=== PATIENT | female | born 1940 | race Caucasian/White ===

== ENCOUNTER 2016-11-27 10:00 | Outpatient (RCR) ==
[2015-07-26 15:09] VITALS: BMI 34.0
== END 2016-11-28 ==
LOC: NEWBEG 10:00
PROVIDERS: ATTEND Psychiatry & Neurology Psychiatry
DX: F32.9 Major depressive disorder, single episode, unspecified (principal)
CPT/HCPCS: 90853; 99213

== ENCOUNTER 2016-12-21 13:08 | Outpatient (CLI) ==
[2015-07-26 15:09] VITALS: BMI 34.0
[2016-12-21 13:46] LABS: BASOPHILS % (AUTO) 0.5 % (0.0-3.0); EOSINOPHILS # (AUTO) 0.2 K/ul (0.0-0.7); EOSINOPHILS % (AUTO) 2.3 % (0.0-7.0); HEMATOCRIT 38.7 % (37.0-47.0); HEMOGLOBIN 12.8 g/dl (12.0-16.0); IMMATURE GRANULOCYTE % (AUTO) 0.2 % (0.0-5.0); LYMPHOCYTES # (AUTO) 1.5 K/uL (0.60-3.4); MEAN CORPUSCULAR HEMOGLOBIN 30.7 pg (27.0-31.0); MEAN CORPUSCULAR HGB CONC 33.1 (31.8-35.4); MEAN CORPUSCULAR VOLUME 92.8 fl (81.0-99.0); MONOCYTES # (AUTO) 0.7 K/uL (0.4-2.0); MONOCYTES % (AUTO) 9.8 (0-10); NEUTROPHILS # (AUTO) 4.3 K/ul (2.0-6.9); NEUTROPHILS % (AUTO) 65.2; PLATELET COUNT 248 10^3/uL (140-440); RED BLOOD COUNT 4.17 10^6/ul (4.20-5.40); WHITE BLOOD COUNT 6.64 K/ul (4.6-10.2)
[2016-12-21 14:21] LABS: ALBUMIN 3.3 g/dL (3.4-5.0); ALBUMIN/GLOBULIN RATIO 0.87; ANION GAP 13.9; BILIRUBIN,TOTAL 0.61 mg/dL (0.00-1.20); BUN/CREATININE RATIO 14.11; CALCIUM 9.9 mg/dL (8.2-10.2); CREATININE 0.85 mg/dL (0.60-1.30); POTASSIUM 3.9 mmol/L (3.5-5.10); TOTAL PROTEIN 7.1 g/dL (5.8-8.1)
[2016-12-22 13:33] LABS: CARCINOEMBRYONIC ANTIGEN 1.5 ng/mL (0.0-4.7)
[2016-12-23 09:45] LABS: CANCER ANTIGEN 27.29 35.4 U/mL (0.0-38.6)
== END 2016-12-21 13:09 | disposition home or self-care (01) ==
LOC: LAB 13:08
PROVIDERS: ATTEND Internal Medicine Hematology & Oncology
DX: C50.919 Malignant neoplasm of unspecified site of unspecified female breast (principal)
CPT/HCPCS: 36415; 80053; 82378; 85025; 86300

== ENCOUNTER 2016-12-25 10:00 | Outpatient (RCR) ==
[2015-07-26 15:09] VITALS: BMI 34.0
== END 2016-12-26 ==
LOC: NEWBEG 10:00
PROVIDERS: ATTEND Psychiatry & Neurology Psychiatry
DX: F32.9 Major depressive disorder, single episode, unspecified (principal)
CPT/HCPCS: 90853; 99213

== ENCOUNTER 2017-01-05 13:32 | Outpatient (CLI) | payer OTHER ==
[2015-07-26 15:09] VITALS: BMI 34.0
== END 2017-01-05 13:33 | disposition home or self-care (01) ==
LOC: LAB 13:32
PROVIDERS: ATTEND Nurse Practitioner Family
DX: K76.9 Liver disease, unspecified (principal); F32.9 Major depressive disorder, single episode, unspecified
CPT/HCPCS: 36415; 83516; 90853

== ENCOUNTER → 2017-01-26 | Outpatient (RCR) ==
[2015-07-26 15:09] VITALS: BMI 34.0
== END ==
LOC: NEWBEG 12-27 10:26
PROVIDERS: ATTEND Psychiatry & Neurology Psychiatry
DX: F32.9 Major depressive disorder, single episode, unspecified (principal)
CPT/HCPCS: 90853; 99213

== ENCOUNTER 2017-02-04 18:57 | Emergency (ER) ==
[2017-02-04 19:00] VITALS: BP 148/95; TEMP 98.5; BMI 29.7
[2017-02-04] MEDS ORDERED: TORADOL IM STA (19:09)
[2017-02-04] MEDS ORDERED: DILAUDID 1 MG/ML SYRINGE IM STA (19:09)
[2017-02-04] MEDS ORDERED: NORFLEX IM STA (19:09)
[2017-02-04 19:27] LABS: BASOPHILS % (AUTO) 0.4 % (0.0-3.0); EOSINOPHILS # (AUTO) 0.2 K/ul (0.0-0.7); EOSINOPHILS % (AUTO) 1.4 % (0.0-7.0); HEMATOCRIT 40.7 % (37.0-47.0); HEMOGLOBIN 13.5 g/dl (12.0-16.0); IMMATURE GRANULOCYTE % (AUTO) 0.3 % (0.0-5.0); LYMPHOCYTES # (AUTO) 1.3 K/uL (0.60-3.4); LYMPHOCYTES % (AUTO) 12.4 (10.0-50.0); MEAN CORPUSCULAR HEMOGLOBIN 30.5 pg (27.0-31.0); MEAN CORPUSCULAR HGB CONC 33.2 (31.8-35.4); MEAN CORPUSCULAR VOLUME 91.9 fl (81.0-99.0); MONOCYTES # (AUTO) 0.8 K/uL (0.4-2.0); MONOCYTES % (AUTO) 7.4 (0-10); NEUTROPHILS # (AUTO) 8.4 K/ul (2.0-6.9); NEUTROPHILS % (AUTO) 78.1; PLATELET COUNT 285 10^3/uL (140-440); RED BLOOD COUNT 4.43 10^6/ul (4.20-5.40); WHITE BLOOD COUNT 10.74 K/ul (4.6-10.2)
--- NOTE | 2017-02-04 19:44 | CT ---
Exam: CT of the chest without contrast History: Back pain Technique: [address] of the chest without intravascular contrast FINDINGS: Lung windows show no infiltrative opacities, suspicious nodules or masses. The atrial ch ambers are prominent. Atherosclerotic calcification of the aorta without aneurysm. No pathologic l ymph node enlargement or abundance of mediastinum. No acute findings of the chest wall soft tissues or bony thorax. Low grade multilevel anterior endplate spondylosis of the thoracic spine. No acut e findings of the upper abdomen. Impression: 1. No acute findings of the chest
--- NOTE | 2017-02-04 19:50 | CT ---
EXAM: CT scan thoracic spine HISTORY: Back pain COMPARISON: None. FINDINGS: Contiguous axial images were obtained through the thoracic spine utilizing 3-mm collimati on. Sagittal and coronal reconstructions were imaged and reviewed.. There is moderate generalized o steopenia. Degenerative disc disease is noted at T2-T3 and at multiple levels within the mid thora cic spine with associated ventral spondylitic changes throughout which are most prominent inferiorly . There is no acute fracture or bony destruction. No central canal or foraminal stenosis. IMPRESSION: Discogenic disease ventral spondylitic changes. No acute findings.
[2017-02-04 19:55] LABS: ALANINE AMINOTRANSFERASE 13 U/L (12-78); ALBUMIN 3.5 g/dL (3.4-5.0); ALBUMIN/GLOBULIN RATIO 1.03; ALKALINE PHOSPHATASE 142 U/L (53-141); ANION GAP 11.7; ASPARTATE AMINO TRANSFERASE 15 U/L (15-37); BILIRUBIN,TOTAL 0.68 mg/dL (0.00-1.20); BLOOD UREA NITROGEN 10 mg/dL (7-18); BUN/CREATININE RATIO 10.52; CARBON DIOXIDE 31 mmol/L (23-31); CHLORIDE 97 mmol/L (98-107); CREATINE KINASE 29 U/L; CREATININE 0.95 mg/dL (0.60-1.30); GLUCOSE 114 mg/dL (82-115); POTASSIUM 3.7 mmol/L (3.5-5.10); SODIUM 136 mmol/L (136-145); TOTAL PROTEIN 6.9 g/dL (5.8-8.1)
[2017-02-04] MEDS ORDERED: ELIQUIS PO STA (19:59)
--- NOTE | 2017-02-04 20:22 | ED.PDOC ---
General ED Provider: Dr. JOSEPH SURESH-ER Chief Complaint: Back Pain Stated Complaint: my back is flaring up Time Seen by Physician: 19:00 Mode of Arrival: Walk-In Information Source: Patient Exam Limitations: No limitations Primary Care Provider: JOSEPH SURESH Nursing and Triage Documentation Reviewed and Agree: Yes Musculoskeletal Complaint Exam - Back Pain Complaint/Exam Mechanism of Injury: Reports: No known trauma Onset/Duration: several weeks Symptoms Are: Still present Timing: Constant Initial Severity: Mild Current Severity: Moderate Location: Reports: Discrete (upper back pain) Character: Reports: Dull, Aching, Throbbing, Spasmodic Aggravating: Reports: Movements, Lifting, Bending Alleviating: Reports: None Associated Signs and Symptoms: Denies: Swelling, Redness, Bruising, Fever, Weakness, Numbness, Tingling, Abdominal pain, Flank pain, Bladder incontinence, Bowel incontinence, Weight loss, Pain with weight bearing Related History: Reports: Similar episode TAD Risk Factors: Reports: Hypertension AAA Risk Factors: Reports: None Cauda Equina Risk Factors: Reports: None Epidural Abcess Risk Factors: Reports: None Focal Tenderness: Yes Paraspinal Muscle Tenderness: Yes Paraspinal Muscle Spasm: No Scoliosis: No Lordosis: No Kyphosis: No SLR Test: Right Negative, Left Negative Hip Motion Testing Pain: Right Negative, Left Negative Focal Weakness: Present: None Focal Sensory Loss: Present: None Gait: Present: Normal Differential Diagnoses: Herniated Disk, Strain, Sprain Review of Systems - Review Of Systems Constitutional: Reports: No symptoms Eyes: Reports: No symptoms Ears, Nose, Mouth, Throat: Reports: No symptoms Respiratory: Reports: No symptoms Cardiac: Reports: No symptoms GI: Reports: No symptoms : Reports: No symptoms Musculoskeletal: Reports: Back pain Skin: Reports: No symptoms Neurological: Reports: No symptoms Endocrine: Reports: No symptoms Hematologic/Lymphatic: Reports: No symptoms All Other Systems: Reviewed and Negative Past Medical History - Past Medical History Endocrine: Reports: None Cardiovascular: Reports: Hypertension, Other (tachycardia) Respiratory: Reports: COPD Hematological: Reports: None Gastrointestinal: Reports: GERD, Liver Genitourinary: Reports: None Neuro/Psych: Reports: None Musculoskeletal: Reports: Other Cancer: Reports: Breast Last Menstrual Period: n/a - Surgical History General Surgical History: Reports: Cholecystectomy - Family History Family History: Reports: Unknown - Social History Smoking Status: Never smoker Hx Substance Use: No Alcohol Screening: None Lives: With family Physical Exam - Physical Exam Appearance: Well-appearing, No pain distress, Well-nourished Pain Distress: Moderate Eyes: MEGAN, EOMI, Conjunctiva clear ENT: Ears normal, Nose normal, Oropharynx normal Neck: Supple Respiratory: Airway patent, Breath sounds clear, Breath sounds equal, Respirations nonlabored Cardiovascular: RRR, Pulses normal, No rub, No murmur GI/: Soft, Nontender, No masses, Bowel sounds normal, No Organomegaly Musculoskeletal: Limited ROM Skin: Warm, Dry, Normal color Neurological: Sensation intact, Motor intact, Reflexes intact, Cranial nerves intact, Alert, Oriented Psychiatric: Affect appropriate, Mood appropriate Interpretation - Radiology Interpretation Radiology Interpretation By: Radiologist Radiology Results: Positive Exam Interpreted: CT Scan - EKG Interpretation Time of EKG #1: 20:22 Rate: Normal Rhythm: Other Ectopy: None [place]: NL ST Segment: Normal Interpretation: afib Re-Evaluation - Re-Evaluation Time of Re-Evaluation: 20:23 Status: Improved Vital Signs Stable: Yes Pain Level: 1 Appearance: NAD Lungs: Clear Skin: Warm and Dry Neuro: Alert and Oriented X3 CV: RRR Critical Care Note - Critical Care Note Total Time (mins): 0 Course - Course Hematology/Chemistry: 02/04/17 19:20 02/04/17 19:20 Orders, Labs, Meds: Lab Review 02/04/17 19:20 WBC 10.74 H RBC 4.43 Hgb 13.5 Hct 40.7 MCV 91.9 MCH 30.5 MCHC 33.2 RDW Coeff of Penny 13.9 Plt Count 285 Immature Gran % (Auto) 0.3 Neut % (Auto) 78.1 Lymph % (Auto) 12.4 Coos % (Auto) 7.4 Eos % (Auto) 1.4 Baso % (Auto) 0.4 Immature Gran # (Auto) 0.0 Neut # 8.4 H Lymph # 1.3 Coos # 0.8 Eos # 0.2 Baso # 0.0 D-Dimer (Manual) 722.74 Sodium 136 Potassium 3.7 Chloride 97 L Carbon Dioxide 31 Anion Gap 11.7 BUN 10 Creatinine 0.95 Estimated GFR (MDRD) 57.00 BUN/Creatinine Ratio 10.52 Glucose 114 Calcium 10.0 Total Bilirubin 0.68 AST 15 ALT 13 Alkaline Phosphatase 142 H Total Creatine Kinase 29 Troponin I < 0.0100 Total Protein 6.9 Albumin 3.5 Globulin 3.4 Albumin/Globulin Ratio 1.03 Orders Category Date Time Status EKG-(ED ONLY) Stat CARDIO 02/04/17 19:08 Completed ED RUBY ON RAILS WEB DEVELOPER APPLIED .ONCE EMERGENCY 02/04/17 19:48 Active CBC W/ AUTO DIFF Stat LAB 02/04/17 19:20 Completed COMPREHENSIVE METABOLIC PANEL Stat LAB 02/04/17 19:20 Completed CREATINE KINASE Stat LAB 02/04/17 19:20 Completed D-DIMER Stat LAB 02/04/17 19:20 Completed TROPONIN I Stat LAB 02/04/17 19:20 Completed Apixaban [Eliquis] MEDS 02/04/17 19:59 Discontinued 5 mg PO ONCE STA Hydromorphone HCl [Dilaudid 1 mg/ml Syringe] MEDS 02/04/17 19:09 Discontinued 1 mg IM ONCE STA Ketorolac Tromethamine [Toradol] MEDS 02/04/17 19:09 Discontinued 60 mg IM ONCE STA Orphenadrine Citrate [Norflex] MEDS 02/04/17 19:09 Discontinued 60 mg IM ONCE STA CT CHEST W/O CONTRAST Stat RADS 02/04/17 19:[address] THORACIC SPINE W/O CONTRAST Stat RADS 02/04/17 19:08 Completed Medications Discontinued Medications Generic Name Dose Route Start Last Admin Trade Name Freq PRN Reason Stop Dose Admin Apixaban 5 mg 02/04/17 19:59 Eliquis PO 02/04/17 20:00 ONCE STA Hydromorphone HCl 1 mg 02/04/17 19:09 02/04/17 19:39 Dilaudid 1 Mg/Ml Syringe IM 02/04/17 19:10 1 mg ONCE STA Administration Ketorolac Tromethamine 60 mg 02/04/17 19:09 02/04/17 19:44 Toradol IM 02/04/17 19:10 60 mg ONCE STA Administration Orphenadrine Citrate 60 mg 02/04/17 19:09 02/04/17 19:44 Norflex IM 02/04/17 19:10 60 mg ONCE STA Administration Vital Signs: Temp Pulse Resp BP Pulse Ox 02/04/17 18:58 98.5 F 45 L 20 148/95 H 93 L Departure - Departure Time of Disposition: 20:26 Disposition: HOME SELF-CARE Discharge Problem: Backache Atrial fibrillation Qualifiers: Atrial fibrillation type: unspecified Qualifier Code: (I48.91) Unspecified atrial fibrillation Instructions: Atrial Fibrillation (ED) Condition: Good Pt referred to PMD for follow-up: Yes Additional Instructions: continue pain meds--eliquis 5mg bid #60---call my office tomorrow to arrange cardiology f/u--see me this week for follow up on back pain(tomorrow if possible ) Allergies/Adverse Reactions: Allergies quinine Adverse Reaction (Verified 02/04/17 19:01) Home Medications: Ambulatory Orders Lisinopril [Lisinopril] 10 mg PO DAILY 07/26/15 Pantoprazole Sodium [Pantoprazole Sodium] 40 mg PO BID 07/26/15 Ursodiol [Ursodiol] 300 mg PO BEDTIME 07/26/15 Disposition Discussed With: Patient, Family
== END 2017-02-04 20:45 | disposition home or self-care (01) ==
LOC: ED 18:57
DX: M54.6 Pain in thoracic spine (principal); I48.91 Unspecified atrial fibrillation; I10 Essential (primary) hypertension; Z79.899 Other long term (current) drug therapy
CPT/HCPCS: 36415; 80053; 82550; 84484; 85025; 85379; 93005; 93010; 96372; 99283

== ENCOUNTER 2017-02-09 10:00 | Outpatient (RCR) ==
[2015-07-26 15:09] VITALS: BMI 34.0
== END 2017-02-25 ==
LOC: NEWBEG 10:00
PROVIDERS: ATTEND Psychiatry & Neurology Psychiatry
DX: F32.9 Major depressive disorder, single episode, unspecified (principal)
CPT/HCPCS: 90853; 99213

== ENCOUNTER 2017-03-09 10:00 | Outpatient (RCR) | END 2017-03-28 | LOC: NEWBEG 10:00 | PROVIDERS: ATTEND Psychiatry & Neurology Psychiatry | DX: F32.9 Major depressive disorder, single episode, unspecified (principal) | CPT/HCPCS: 90853; 99213 ==

== ENCOUNTER 2017-03-14 15:47 | Outpatient (CLI) ==
[2017-03-14 16:25] LABS: BASOPHILS % (AUTO) 0.2 % (0.0-3.0); EOSINOPHILS % (AUTO) 0.2 % (0.0-7.0); HEMATOCRIT 40.3 % (37.0-47.0); HEMOGLOBIN 13.7 g/dl (12.0-16.0); IMMATURE GRANULOCYTE % (AUTO) 0.5 % (0.0-5.0); LYMPHOCYTES % (AUTO) 7.8 (10.0-50.0); MEAN CORPUSCULAR HEMOGLOBIN 31.8 pg (27.0-31.0); MEAN CORPUSCULAR VOLUME 93.5 fl (81.0-99.0); MONOCYTES # (AUTO) 0.6 K/uL (0.4-2.0); NEUTROPHILS # (AUTO) 10.8 K/ul (2.0-6.9); NEUTROPHILS % (AUTO) 86.3; PLATELET COUNT 329 10^3/uL (140-440); RED BLOOD COUNT 4.31 10^6/ul (4.20-5.40); WHITE BLOOD COUNT 12.48 K/ul (4.6-10.2)
[2017-03-14 16:43] LABS: CALCIUM 9.7 mg/dL (8.2-10.2)
--- NOTE | 2017-03-14 16:50 | DI ---
Exam: Two x-rays of the chest. Comparison: CT performed 02/04/2017. Reason for exam: The atrial fibrillation. FINDINGS: No pneumothorax or pleural effusion. There is linear atelectasis in the right lung base. The cardiac silhouette is unchanged. The imaged osseous structures are unremarkable without acute fracture. Degenerative disease is seen in the thoracic spine with anterior osteophyte formation. Impression: 1. No acute cardiopulmonary process with linear atelectasis in the right lung base. 2. Degenerative disease in the thoracic spine
[2017-03-15 07:43] LABS: CANCER ANTIGEN 27.29 35.2 U/mL (0.0-38.6); CARCINOEMBRYONIC ANTIGEN 1.8 ng/mL (0.0-4.7)
[2017-03-15 10:58] LABS: ALBUMIN 3.5 g/dL (3.4-5.0); ALBUMIN/GLOBULIN RATIO 0.95; BILIRUBIN,TOTAL 0.3 mg/dL (0.00-1.20); TOTAL PROTEIN 7.2 g/dL (5.8-8.1)
== END 2017-03-14 15:48 | disposition home or self-care (01) ==
LOC: LAB 15:47
PROVIDERS: ATTEND Internal Medicine Cardiovascular Disease
DX: I48.0 Paroxysmal atrial fibrillation (principal); Z01.818 Encounter for other preprocedural examination; Z85.3 Personal history of malignant neoplasm of breast
CPT/HCPCS: 36415; 80048; 80053; 82378; 85025; 86300

== ENCOUNTER 2017-05-03 14:56 | Outpatient (CLI) ==
--- NOTE | 2017-05-03 15:33 | DI ---
Exam: Two x-rays of the chest. Comparison: 03/14/2017. Reason for exam: Bronchitis with cough. FINDINGS: There is blunting of both costophrenic angles. No pneumothorax. The cardiac silhouette is mildly prominent but unchanged from previous imaging. D egenerative disease is seen in the thoracic spine. Impression: 1. Blunting of both costophrenic angles consistent with atelectasis or pneumonia with or without sm all pleural effusions. 2. Similar appearing cardiomegaly.
== END 2017-05-03 14:57 | disposition home or self-care (01) ==
LOC: RAD 14:56
PROVIDERS: ATTEND Family Medicine
DX: J40 Bronchitis, not specified as acute or chronic (principal)

== ENCOUNTER 2017-05-16 16:41 | Outpatient (CLI) ==
--- NOTE | 2017-05-17 08:02 | DI ---
EXAM: PA and lateral views of the chest HISTORY: Pleural effusion COMPARISON: Chest x-ray 05/03/2017 FINDINGS: The cardiomediastinal silhouette is unchanged with calcified right hilar lymph nodes. Th ere is no pneumothorax or pleural effusion. There is no consolidation, nodule or mass. The osseous structures demonstrate multilevel degenerative disease of the spine. Surgical clips are noted in r ight upper quadrant. IMPRESSION: No acute cardiopulmonary process
== END 2017-05-16 16:42 | disposition home or self-care (01) ==
LOC: RAD 16:41
PROVIDERS: ATTEND Family Medicine
DX: J90 Pleural effusion, not elsewhere classified (principal)

== ENCOUNTER 2017-05-24 16:58 | Emergency (ER) ==
[2017-05-24 17:06] VITALS: BP 159/104; TEMP 100.2; BMI 29.2
--- NOTE | 2017-05-24 17:55 | CT ---
Exam: Head CT. Date: 05/24/2017. Comparison: None. HISTORY: Fell. TECHNIQUE: Helical scan of the brain was performed. FINDINGS: There is injury to the soft tissues over the right frontal calvarium. The calvarium is i ntact. The paranasal sinuses and mastoid air cells are clear. The brainstem and cerebellum are within normal limits. No abnormal intra or extra-axial fluid, mass or mass effect is present. There is no midline shift or hydrocephalus. No large vessel infarct or hemorrhages identified. The beverly-white interface is maintained. Impression: There is injury to the soft tissues over the right frontal calvarium, but without under lying calvarial fracture or acute intracranial abnormality.
--- NOTE | 2017-05-24 18:00 | CT ---
Exam: CT scan of the cervical spine. Date: 05/24/2017. Comparison: None. HISTORY: Fell and hit head. TECHNIQUE: Helical scan through the cervical spine was performed. FINDINGS: No prevertebral soft tissue swelling is seen. There is a normal aligned to the cervical spine. There is loss of disc space height with degenerative spurring from C3-C7. The vertebral bod y heights are maintained at all levels. Segmental analysis: C1-2: There is a large exuberant osteophyte projecting off the right anterior arch of C1 which has a pseudoarthrosis with an additional ossicle that is anterior to the osteophyte; the ossicle measure s 1.0 x 2.1 cm. C2-3: No abnormalities are seen. C3-4: There is mild diffuse disc/osteophyte complex with minimal impression upon the thecal sac. T here is severe right and moderate left neural foraminal narrowing from uncovertebral osteophytosis. C4-5: There is a central midline disc/osteophyte complex which narrows the canal diameter less than 1 cm and has an impression upon the thecal sac and cord. There is severe bilateral neural foramina l narrowing from uncovertebral osteophytosis. C5-6: There is mild diffuse disc/osteophyte complex with mild impression upon the thecal sac. Ther e is minimal left neural foraminal narrowing from uncovertebral osteophytosis and facet hypertrophy. C6-7: There is mild diffuse disc/osteophyte complex causing mild impression upon the thecal sac. T here is moderate right and mild left neural foraminal narrowing from uncovertebral osteophytosis. C7-T1: No abnormalities are seen. Impression: No acute osseous abnormality in the cervical spine, with degenerative changes at the le vels as described above.
--- NOTE | 2017-05-24 18:07 | ED.PDOC ---
General ED Provider: Dr. JOSEPH SURESH-ER Chief Complaint: Fall Stated Complaint: i fell and hit my head--no loc or vomiting Time Seen by Physician: 17:00 Mode of Arrival: Ambulance Information Source: Patient, Family Exam Limitations: No limitations Primary Care Provider: JOSEPH SURESH Nursing and Triage Documentation Reviewed and Agree: Yes Trauma/Injury Complaint Exam - Head Injury Complaint/Exam Location of Pain: Reports: Right, Scalp Mechanism of Injury: Reports: Trauma Onset/Duration: 30 min ago Symptoms Are: Still present Initial Severity: Mild Current Severity: Mild Character: Reports: Dull, Throbbing, Pressure Aggravating: Reports: None Alleviating: Reports: None Associated Signs and Symptoms: Denies: Confusion, Memory loss, Seizure, Epistaxis, Dental malocclusion, Neck pain, Nausea, Vomiting Loss of Consciousness: None SDH Risk Factors: Present: None Cervical Spine Injury Risk Factors: Present: None C-Collar in Place: yes Immobilization Removed Post Exam: Yes Head Injury Findings: Present: Normal findings Glascow Coma Scale (see protocol): 15 Focal Weakness: Present: None Focal Sensory Loss: Present: None Gait: Normal Gag Reflex Present: Yes Finger to Nose: Normal Rhomberg Test Positive: No Babinski Sign: Negative Right, Negative Left Heel to Toe Normal: Yes Differential Diagnoses: Cervical Fracture, Intracranial Bleed, Sprain, Strain, Trauma Review of Systems - Review Of Systems Constitutional: Reports: No symptoms Eyes: Reports: No symptoms Ears, Nose, Mouth, Throat: Reports: No symptoms Respiratory: Reports: No symptoms Cardiac: Reports: No symptoms GI: Reports: No symptoms : Reports: No symptoms Musculoskeletal: Reports: Neck pain Skin: Reports: No symptoms Neurological: Reports: Headache Endocrine: Reports: No symptoms Hematologic/Lymphatic: Reports: No symptoms All Other Systems: Reviewed and Negative Past Medical History - Past Medical History Previously Healthy: No Endocrine: Reports: None Cardiovascular: Reports: Hypertension, Other (tachycardia) Respiratory: Reports: COPD Hematological: Reports: None Gastrointestinal: Reports: GERD, Liver Genitourinary: Reports: None Neuro/Psych: Reports: None Musculoskeletal: Reports: Other Cancer: Reports: Breast Last Menstrual Period: unknown - Surgical History General Surgical History: Reports: Cholecystectomy - Family History Family History: Reports: Unknown - Social History Smoking Status: Never smoker Hx Substance Use: No Alcohol Screening: None Lives: With family Physical Exam - Physical Exam Appearance: Well-appearing, No pain distress, Well-nourished Pain Distress: Mild Eyes: MEGAN, EOMI, Conjunctiva clear ENT: Ears normal, Nose normal, Oropharynx normal Neck: Supple Respiratory: Airway patent Cardiovascular: RRR GI/: Soft, Nontender, No masses, Bowel sounds normal, No Organomegaly Musculoskeletal: Normal strength, ROM intact, No edema, No calf tenderness Skin: Warm, Dry, Normal color Neurological: Sensation intact, Motor intact, Reflexes intact, Cranial nerves intact, Alert, Oriented Psychiatric: Affect appropriate, Mood appropriate Interpretation - Radiology Interpretation Radiology Interpretation By: Radiologist Radiology Results: Negative Exam Interpreted: CT Scan Re-Evaluation - Re-Evaluation Time of Re-Evaluation: 18:07 Status: Unchanged Vital Signs Stable: Yes Pain Level: 1 Appearance: NAD Lungs: Clear Skin: Warm and Dry Neuro: Alert and Oriented X3 CV: RRR Critical Care Note - Critical Care Note Total Time (mins): 0 Course - Course Orders, Labs, Meds: Orders Category Date Time Status C collar [ED IMMOBILIZATION] .ONCE EMERGENCY 05/24/17 17:[address] CERVICAL SPINE W/O CONTRAST Stat RADS 05/24/17 17:[address] HEAD W/O CONTRAST Stat RADS 05/24/17 17:01 Completed Vital Signs: Temp Pulse Resp BP Pulse Ox 05/24/17 16:59 100.2 F H 130 H 20 159/104 H 96 Departure - Departure Time of Disposition: 18:08 Disposition: HOME SELF-CARE Discharge Problem: Injury of head Qualifiers: Encounter type: initial encounter Qualifier Code: (S09.90XA) Unspecified injury of head, initial encounter Instructions: Head Injury (ED) Condition: Good Pt referred to PMD for follow-up: Yes Additional Instructions: head injury instructions--return if any confusion or vomiting Allergies/Adverse Reactions: Allergies quinine Adverse Reaction (Verified 02/04/17 19:01) Home Medications: Ambulatory Orders Lisinopril [Lisinopril] 10 mg PO DAILY 07/26/15 Pantoprazole Sodium [Pantoprazole Sodium] 40 mg PO BID 07/26/15 Ursodiol [Ursodiol] 300 mg PO BEDTIME 07/26/15 Apixaban [Eliquis] 5 mg PO BID 05/24/17 Carvedilol [Coreg] 6.25 mg PO BID 05/24/17 Cyanocobalamin/FA/Pyridoxine [Virt-Ameena Tablet] 1 each PO DAILY 05/24/17 Hydrocodone Bit/Acetaminophen [[place] 5-325] 1 - 2 each PO Q6HR PRN 05/24/17 Meloxicam 15 mg PO DAILY 05/24/17 Mirtazapine [Remeron] 7.5 mg PO BEDTIME PRN 05/24/17 Simvastatin [Zocor] 10 mg PO BEDTIME 05/24/17 Spironolactone [Aldactone] 25 mg PO DAILY 05/24/17 Disposition Discussed With: Patient, Family
== END 2017-05-24 18:41 | disposition home or self-care (01) ==
LOC: ED 16:58
DX: S09.90XA Unspecified injury of head, initial encounter (principal); M54.2 Cervicalgia; R51 Headache; W19.XXXA Unspecified fall, initial encounter
CPT/HCPCS: 99283

== ENCOUNTER 2017-07-11 11:45 | Outpatient (CLI) | payer OTHER ==
[2017-07-11 12:48] LABS: ANION GAP 12.8; BUN/CREATININE RATIO 9.3; CALCIUM 9.5 mg/dL (8.2-10.2); CREATININE 0.86 mg/dL (0.60-1.30); POTASSIUM 3.8 mmol/L (3.5-5.10)
--- NOTE | 2017-07-12 02:40 | MRI ---
EXAM: MRI lumbar spine without IV contrast. DATE: 07/11/2017. HISTORY: Chronic low back pain. TECHNIQUE: Sagittal and axial T1W and T2W sequences of the lumbar spine along with sagittal IR and c oronal T2W sequences were obtained using 1.2 Daisha magnet. No IV contrast. COMPARISON: MRI T-spine 07/11/2017. CT T-spine [address] chest 02/04/2017. FINDINGS: There are five [id number] lumbar vertebra. There is no lumbar scoliosis. A 2.2 mm a nterior subluxation of L4 relative to L5 and 4 mm anterolisthesis of L5 relative to S1 are due to fac et disease. No other subluxation, acute fracture, osseous malignancy, or pars interarticularis defec t is demonstrated. Prominent osteophytes are demonstrated in the lower thoracic and lumbar spine. L umbar vertebra are normal in height. Chronic Schmorl's nodes are identified at T10, T11, L4, and L5. Minimal L3-4, moderate L4-5, and mild L5-S1 disc space narrowing is detected. No sacral fracture o r stress reaction is apparent. SI joints are unremarkable. T2W bright, T1W dark, 9.9 x 11 x 14 mm f ocus in the midline spinal canal at S2 is likely a benign Tarlov cyst. Conus medullaris terminates a t L1-2. Visible spinal cord is normal. No retroperitoneal lymphadenopathy is revealed, although there are several small retroperitoneal lymp h nodes. No aortic aneurysm or dissection detected. Psoas muscles are normal. There is mild bilate ral posterior paraspinal muscle atrophy. Moderate/ marked pancreatic atrophy is demonstrated. Visible portions of the liver, spleen, adrenal glands and left kidney are unremarkable. T2W bright, T1W ana luisa k, 4 x 5 of 4 cm lesion in the anterior cortex midzone/lower pole right kidney corresponds with a kirk er density lesion present on recent on chest CT. Atherosclerotic plaques are present within the abdo amrik aorta wall. Right lateral uterine fundus T2W dark, 1.9 cm focus and left lateral uterine fundus 2.5 cm similar lesion are likely fibroids. Small number of descending and sigmoid colon diverticuli are visible. Segmental analysis: T12-L1: Normal. L1-2: Minimal concentric disc bulge causes minimal bilateral inferior foraminal encroachment. No ce ntral canal stenosis. L2-3: Small posterior to left foraminal disc bulge and minor facet arthropathy cause mild left farhan inal narrowing. No central canal stenosis. L3-4: Small concentric disc bulge, mild facet arthropathy, and mild ligamentum flavum hypertrophy ca use minimal bilateral foraminal narrowing. No central canal stenosis. L4-5: Small consent disc bulge, mild/moderate facet arthropathy, and moderate ligamentum flavum hype rtrophy cause mild central canal stenosis, minimal right foraminal narrowing, and mild left foraminal stenosis. L5-S1: Mild anterior subluxation of L5, small concentric disc bulge, marked facet arthropathy, and m ild right ligamentum flavum hypertrophy cause triangulation of the canal, mild right foraminal stenos is, and minor/mild left foraminal stenosis. Each L5 nerve root contacts the disc bulge near the late ral aspect the foramen. IMPRESSIONS: 1. Lumbar spine moderate spondylosis, multilevel facet arthropathy (especially L5-S1), L4-5 and L5-S 1 mild subluxations due to facet disease, and multilevel DDD. 2. Mild central canal stenosis at L4-5. Triangulation of canal at L5-S1. 3. Multilevel lumbar foraminal stenoses (minimal/mild). Each L5 nerve root contacts the disc bulge near the foramen, and may be sources for pain/radiculopathy. 4. T-L-spine small, chronic Schmorl's nodes. 5. Right kidney benign-appearing cortical cyst. 6. Descending/sigmoid colon diverticulosis. 7. Mild abdominal aortic atherosclerosis. 8. Uterine fibroids (x2).
--- NOTE | 2017-07-12 03:09 | MRI ---
EXAM: MRI thoracic spine without IV contrast. DATE: 07/11/2017. HISTORY: Thoracic spine pain. TECHNIQUE: Sagittal T2W, sagittal T1W, sagittal IR, coronal T2W, axial T2W, and axial T1W sequences of the thoracic spine were obtained using 1.2 Daisha magnet. No IV contrast. COMPARISON: CT T-spine [address] chest 04 February 2017. MRI L-spine 07/11/2017. FINDINGS: Sagittal counting [place] sequence of the cervical and thoracic spine demonstrates no acute c-spine fracture, malignancy, or jumped facet. A 1 mm anterior subluxation of C5 relative to C6 is n oted. Posterior disc/osteophyte complexes appear to cause moderate/marked C4-5, marked C5-6, moderat e C6-7 central canal stenoses. No cervical cord edema, syrinx, or myelomalacia is demonstrated. T2W bright in the right C7-T1 foramen is likely a benign perineural cyst. No Chiari 1 malformation is e vident. No definitive neck mass or cervical lymphadenopathy is demonstrated. The there are 12 thoracic vertebra with paired ribs. Mild rightward curvature of the mid thoracic sp ine is evident. No acute T-spine fracture, subluxation, osseous malignancy, or jumped facet is evide nt. Thoracic vertebra are normal in height. T2W/T1W bright, 8 mm focus in the T5 vertebral body is likely benign hemangioma. Prominent osteophytes are visible within the mid and lower thoracic spine. Bone marrow signal is overall normal. Chronic Schmorl's nodes are revealed at T7, T8, T10, and T11 . Minor disc space narrowing is seen at T6-7 and T7-8. Conus medullaris terminates at L1-2. No tho racic cord edema, syrinx, myelomalacia, or neoplasm is identified. T2W bright, T1W intermediate signal, 7.5 mm focus in the right thyroid lobe is best seen on axial derrek ge #4. Trachea and thoracic esophagus are unremarkable. Small pretracheal lymph nodes are present w ithout definitive lymphadenopathy. There is abundant fat surrounding the distal esophagus. A 7.3 x 6.2 mm T2W slightly bright, T1W intermediate signal focus immediately lateral to the distal esophagus at the T10 level is similar in size to January 2017. The overall heart size is enlarged. Left atrium is enlarged at 5.6 cm AP. No pericardial effusion. Moderate to large posterior layering right pleur al effusion and small posterior layering left pleural effusion are new since January 2017. Areas of in terstitial prominence in each lung likely represent pneumonitis. Visible portion of each shoulder de monstrates no shoulder dislocation or malignancy. Left AC joint arthritis is noted. The liver, sple en, adrenal glands and left kidney are unremarkable. Partially visualized T2W bright focus in the mi dzone/lower pole right kidney correspond with water density lesion on prior chest CT scan. Segmental analysis: C7-T1: Normal, except for right foraminal T2W bright, T1W dark, 3 x 4.6 mm focus (likely benign gerardo neural cyst). T1-2: No disc protrusion or central stenosis. Mild left foraminal narrowing due to mild left facet arthropathy. A T2W bright, T1W dark, 5 x 7.7 mm focus in the right foramen is likely noted. T2-3: Minor posterior disc bulge does not contact the cord or cause central stenosis. Each foramen is patent. T3-4: Normal. T4-5: Normal. T5-6: Normal. T6-7: Left paracentral disc protrusion (3 mm AP x 3 mm transverse) touches the left anterolateral ma rgin the cord, but does not cause central stenosis. Each foramen is patent. Left foramen T2W bright , T1W dark, 4.7 x 3.5 mm focus is noted. T7-8: Minor left paracentral disc bulge does not cause cord compression or central stenosis. Each f oramen is patent. T8-9: Minor left paracentral disc bulge does not cause cord compression or central stenosis. Each f oramen is patent. T9-10: Normal, except for left foraminal T2W bright, T1W dark, 2.2 mm diameter focus. T10-11: Normal, except for right foraminal T2W bright, T1W intermediate signal, 2.6 x 2.5 mm focus. T11-12: Normal, except for right foraminal T2W bright, T1W dark, 4 x 4.7 mm focus. IMPRESSIONS: 1. Thoracic spine mild dextroscoliosis, moderate/marked spondylosis, and minor DDD. 2. No thoracic central canal stenosis. 3. Mild left foraminal stenosis at T1-2. 4. Chronic Schmorl's nodes at T7, T8, T10, T11. 5. Multilevel foraminal T2W bright foci - likely benign perineural cysts. If there is clinical conc ace for schwannoma or neurofibroma, contrast-enhanced MRI could be considered. 6. C-spine DDD and multilevel central canal stenoses (especially C4-5 and C5-6). 7. Right kidney probable benign cortical cyst. 8. Abundant fat vs lipoma abutting the distal esophagus. 9. Cardiomegaly. Persistent left atrial enlargement. Other chambers of the heart are not adequatel y visualized. 10. Bilateral pleural effusions and probable interstitial pneumonitis. Recommend follow-up chest x- ray. 11. A 7.3 x 6.2 mm focus in the fat adjacent to the distal esophagus is most likely a lymph node. Unexpected findin. Right lobe thyroid T2W bright focus - recommend US to determine cyst vs greg id.
== END 2017-07-11 11:46 | disposition home or self-care (01) ==
LOC: RAD 11:45
PROVIDERS: ATTEND Family Medicine
DX: M54.5 Low back pain (principal); M54.6 Pain in thoracic spine; G89.29 Other chronic pain; I50.22 Chronic systolic (congestive) heart failure
CPT/HCPCS: 36415; 80048

== ENCOUNTER 2017-07-14 12:10 | Outpatient (CLI) ==
--- NOTE | 2017-07-15 17:01 | DI ---
EXAM: Two-view chest. HISTORY: Abnormal chest MRI. COMPARISON: Chest x-ray day 05/16/2017 and MRI of the thoracic spine dated 07/11/2017. FINDINGS: Frontal and lateral views of the chest. The lung volumes are normal. There is no lobar consolidation or effusion. The heart size and pulmonary vasculature are within normal limits. Ther e are no suspicious pulmonary nodules. The pulmonary interstitium is normal. The aorta is tortuou s and calcified. The osseous structures show mild degenerative changes consistent with age. IMPRESSION: No acute pulmonary disease. Hyperexpansion of chest consistent with chronic obstructive pulmonary disease. Previously seen effus ion on MRI is not well seen on the study.
== END 2017-07-14 12:11 | disposition home or self-care (01) ==
LOC: RAD 12:10
PROVIDERS: ATTEND Family Medicine
DX: R93.8 Abnormal findings on diagnostic imaging of other specified body structures (principal)

== ENCOUNTER 2017-07-17 10:08 | Outpatient (CLI) | payer OTHER ==
--- NOTE | 2017-07-17 10:57 | US ---
EXAM: Thyroid ultrasound HISTORY: Thyroid nodule. COMPARISON: CT cervical spine 05/24/2017 and MRI thoracic spine 07/11/2017 TECHNIQUE: Sonographic evaluation of the thyroid was performed with limited doppler. FINDINGS: The right thyroid measures 3.1 x 1.6 x 1.9 cm. There is a complex solid appearing nodule with centra l areas of hypo echogenicity measuring 1.0 x 1.2 x 0.9 cm. There is no internal color Doppler flow i dentified. There is otherwise normal echogenicity. The isthmus measures 0.4 cm in thickness. The left thyroid measures 3.3 x 1.6 x 1.7 cm. There is no calcification, nodule or mass. There is n ormal echogenicity and color Doppler flow. IMPRESSION: Complex nodule in the right thyroid measuring greater than 1 cm in diameter with no internal color D oppler flow has been present since 05/24/2017. Further evaluation with nuclear medicine study versus follow-up ultrasound may be obtained. Soft tissue sampling may be obtained as clinically indicated.
== END 2017-07-17 10:09 | disposition home or self-care (01) ==
LOC: RAD 10:08
PROVIDERS: ATTEND Family Medicine
DX: E04.1 Nontoxic single thyroid nodule (principal)

== ENCOUNTER 2017-09-14 18:25 | Outpatient (CLI) ==
[2017-09-14 19:11] LABS: BASOPHILS % (AUTO) 0.6 % (0.0-3.0); EOSINOPHILS # (AUTO) 0.2 K/ul (0.0-0.7); EOSINOPHILS % (AUTO) 2.2 % (0.0-7.0); HEMATOCRIT 35.9 % (37.0-47.0); HEMOGLOBIN 12.2 g/dl (12.0-16.0); IMMATURE GRANULOCYTE % (AUTO) 0.1 % (0.0-5.0); LYMPHOCYTES # (AUTO) 1.4 K/uL (0.60-3.4); LYMPHOCYTES % (AUTO) 19.6 (10.0-50.0); MEAN CORPUSCULAR HEMOGLOBIN 31.5 pg (27.0-31.0); MEAN CORPUSCULAR VOLUME 92.8 fl (81.0-99.0); MONOCYTES # (AUTO) 0.5 K/uL (0.4-2.0); MONOCYTES % (AUTO) 6.7 (0-10); NEUTROPHILS # (AUTO) 5.1 K/ul (2.0-6.9); NEUTROPHILS % (AUTO) 70.8; PLATELET COUNT 212 10^3/uL (140-440); RED BLOOD COUNT 3.87 10^6/ul (4.20-5.40); WHITE BLOOD COUNT 7.26 K/ul (4.6-10.2)
[2017-09-14 19:31] LABS: ALBUMIN 3.5 g/dL (3.4-5.0); ALBUMIN/GLOBULIN RATIO 0.9; BILIRUBIN,TOTAL 0.95 mg/dL (0.00-1.20); BUN/CREATININE RATIO 6.55; CALCIUM 10.5 mg/dL (8.2-10.2); CREATININE 1.22 mg/dL (0.60-1.30); TOTAL PROTEIN 7.4 g/dL (5.8-8.1)
[2017-09-16 07:11] LABS: CARCINOEMBRYONIC ANTIGEN 1.2 ng/mL (0.0-4.7)
[2017-09-16 09:36] LABS: CANCER ANTIGEN 27.29 31.3 U/mL (0.0-38.6)
== END 2017-09-14 18:26 | disposition home or self-care (01) ==
LOC: LAB 18:25
PROVIDERS: ATTEND Internal Medicine Hematology & Oncology
DX: Z09 Encounter for follow-up examination after completed treatment for conditions other than malignant neoplasm (principal)
CPT/HCPCS: 36415; 80053; 82378; 85025; 86300

== ENCOUNTER 2017-12-21 21:01 | Outpatient (CLI) | END 2017-12-21 21:02 | disposition home or self-care (01) | LOC: LAB 21:01 | PROVIDERS: ATTEND Family Medicine | DX: R94.4 Abnormal results of kidney function studies (principal); D05.11 Intraductal carcinoma in situ of right breast | CPT/HCPCS: 36415; 80048; 82607; 82746 ==

== ENCOUNTER 2018-03-01 08:55 | Emergency (ER) ==
[2018-03-01 09:18] VITALS: BP 118/76; TEMP 98.7; BMI 27.5
--- NOTE | 2018-03-01 10:11 | US ---
EXAM: Left lower extremity venous Doppler HISTORY: Concern for DVT with shortness of breath and chest pain. COMPARISON: None TECHNIQUE: Sonographic and Doppler evaluation of the left lower extremity vessels from the common fe moral through the anterior tibial veins were obtained. Augmentation and compression techniques were also performed. FINDINGS: There is spontaneous Doppler flow seen in the left lower extremity veins from the common f emoral through the anterior tibial veins. There is normal compression and augmentation throughout th e lower extremity veins. There is no visualized reflux. Sonographic appearance of the soft tissues are unremarkable. IMPRESSION: No left lower extremity thrombus
--- NOTE | 2018-03-01 11:13 | ED.PDOC ---
General ED Provider: Dr. SHADIA KRISHNAN Chief Complaint: Extremity Pain/Injury Stated Complaint: left leg pain Time Seen by Physician: 09:00 (negative trauma seen with OMAYRA) Information Source: Patient Exam Limitations: No limitations Primary Care Provider: JOSEPH SURESH Nursing and Triage Documentation Reviewed and Agree: Yes Reviewed sepsis parameters & appropriate labs ordered?: Yes System Inflammatory Response Syndrome: Not Applicable Sepsis Protocol: For patient's 13 years and over: Temp is 96.8 and below OR 101 and greater Pulse >90 BPM Resp >20/minute Acutely Altered Mental Status Are patient's symptoms suggestive of a new infection, such as: -Pneumonia -Skin, Soft Tissue -Endocarditis -UTI -Bone, Joint Infection -Implantable Device -Acute Abdominal Infection -Wound Infection -Meningitis -Blood Stream Catheter Infection -Unknown System Inflammatory Response Syndrome: Not Applicable Musculoskeletal Complaint Exam - Lower Extremity Complaint/Exam Location of Pain: Reports: Left, Leg Mechanism of Injury: Reports: No known trauma Onset/Duration: 1 day Symptoms Are: Still present Onset of Pain: Reports: Hours Initial Severity: Moderate Current Severity: Mild Location: Reports: Discrete Character: Reports: Aching Alleviating: Reports: Rest, Position Aggravating: Reports: Movement, Weight bearing, Prolonged standing Able to Bear Weight: Yes Associated Signs and Symptoms: Denies: Swelling, Redness, Bruising, Fever, Weakness, Numbness, Tingling Related History: Reports: Similar episode DVT Risk Factors: Reports: None Septic Arthritis Risk Factors: Reports: Extremes of age Related Surgical History: Reports: None Lower Extremity Findings: Absent: Swelling, Ecchymosis, Abnormal contour, Rotation, Ligamentous instability, Laceration, Erythema, Warmth, Blisters, Foreign body, Tenderness, Limited range of motion NV Bundle Intact Distal to Injury: No Compartment Syndrome Risk Factors: Present: Pain Ghazala's Sign Present: No Differential Diagnoses: Strain, Sprain Review of Systems - Review Of Systems Constitutional: Reports: No symptoms Eyes: Reports: No symptoms Ears, Nose, Mouth, Throat: Reports: No symptoms Respiratory: Reports: No symptoms Cardiac: Reports: No symptoms GI: Reports: No symptoms : Reports: No symptoms Musculoskeletal: Denies: Other (pain) Skin: Reports: No symptoms Neurological: Reports: No symptoms Endocrine: Reports: No symptoms Hematologic/Lymphatic: Reports: No symptoms All Other Systems: Reviewed and Negative Past Medical History - Past Medical History Previously Healthy: No Endocrine: Reports: None Cardiovascular: Reports: Hypertension, Other (tachycardia) Respiratory: Reports: COPD Hematological: Reports: None Gastrointestinal: Reports: GERD, Liver Genitourinary: Reports: None Neuro/Psych: Reports: None Musculoskeletal: Reports: Other Cancer: Reports: Breast Last Menstrual Period: post menopausal - Surgical History General Surgical History: Reports: Cholecystectomy - Family History Family History: Reports: Unknown - Social History Smoking Status: Never smoker Hx Substance Use: No Alcohol Screening: None Physical Exam - Physical Exam Appearance: Well-appearing, No pain distress, Well-nourished Eyes: MEGAN, EOMI, Conjunctiva clear ENT: Ears normal, Nose normal, Oropharynx normal Respiratory: Airway patent, Breath sounds clear, Breath sounds equal, Respirations nonlabored Cardiovascular: RRR, Pulses normal, No rub, No murmur GI/: Soft, Nontender, No masses, Bowel sounds normal, No Organomegaly Musculoskeletal: Normal strength, ROM intact, No edema, No calf tenderness Skin: Warm, Dry, Normal color Neurological: Sensation intact, Motor intact, Reflexes intact, Cranial nerves intact, Alert, Oriented Psychiatric: Affect appropriate, Mood appropriate Critical Care Note - Critical Care Note Total Time (mins): 0 Course - Course Orders, Labs, Meds: Orders Category Date Time Status U/S VENOUS SCAN LT. LEG Stat RADS 03/01/18 09:31 Completed Vital Signs: Temp Pulse Resp BP Pulse Ox 03/01/18 08:57 98.7 F 92 H 20 118/76 96 Departure - Departure Time of Disposition: 11:14 Disposition: HOME SELF-CARE Discharge Problem: Leg pain Qualifiers: Laterality: left Qualified Code(s): M79.605 - Pain in left leg Instructions: Leg Pain (ED) Condition: Good Pt referred to PMD for follow-up: Yes IPMP verified?: No Additional Instructions: Please call your Family Physician as soon as possible to schedule a follow-up appointment. Allergies/Adverse Reactions: Allergies quinine Adverse Reaction (Verified 03/01/18 09:11) Home Medications: Ambulatory Orders Lisinopril 5 mg PO DAILY 07/26/15 Pantoprazole Sodium 40 mg PO BID 07/26/15 Ursodiol 300 mg PO BEDTIME 07/26/15 Apixaban [Eliquis] 5 mg PO BID 05/24/17 Carvedilol [Coreg] 3.125 mg PO BID 05/24/17 Hydrocodone Bit/Acetaminophen [[place] 5-325] 1 - 2 each PO Q6HR PRN 05/24/17 Mirtazapine [Remeron] 7.5 mg PO BEDTIME PRN 05/24/17 Simvastatin [Zocor] 10 mg PO BEDTIME 05/24/17 Spironolactone [Aldactone] 25 mg PO DAILY 05/24/17
== END 2018-03-01 11:27 | disposition home or self-care (01) ==
LOC: ED 08:55
DX: M79.605 Pain in left leg (principal)
CPT/HCPCS: 99283

== ENCOUNTER 2018-09-18 12:22 | Outpatient (CLI) | payer OTHER | END 2018-09-18 12:23 | disposition home or self-care (01) | LOC: LAB 12:22 | PROVIDERS: ATTEND Internal Medicine Hematology & Oncology | DX: D05.11 Intraductal carcinoma in situ of right breast (principal); Z85.3 Personal history of malignant neoplasm of breast | CPT/HCPCS: 36415; 80053; 82378; 85025; 86300 ==

== ENCOUNTER 2019-06-26 14:00 | Outpatient (RCR) | payer OTHER ==
--- NOTE | 2019-05-29 15:04 | RS.OPPTDN ---
Subjective Date of Note: 05/29/19 Visit #: 2 Number of visits approved by Insurance: na Date of Evaluation: 05/27/19 Payer Source: MEDICARE Treatment Diagnosis: Gait difficulty, impaired balance, LBP Current Subjective/complaints:: Patient reports feeling better after treatment session today. *Precautions: none Pain Assessment - Pain Description Pain Location: lowback Current Pain Intensity: 6/10 - Heat/Cryotherapy Treatment: Hot Pack ([id number] to the lowback prior to EX. Patient in sitting. ) Interventions - Exercise/Activities/Manual Therapy Exercises/Activities: Assisted stretching of the bilateral HS, SKTC, piriformis. Alt hip flexion. Isometric hip add with ball. Overhead shoulder flexion with wand. Progressed to alt hip flexion with overhead shoulder flexion with wand. Patient education through instruction and teach back demonstration for home stretching of HS, SKTC, piriformis, and alt hip flexion. Gait training in hallway and on ramp with quad cane. Verbal cues for proper use of cane and gait sequence. Total minutes of Exercise: 24mins Manual Therapy: NA - Charges Timed Code Treatment Minutes: 24mins Total Treatment Time: 45mins Procedures billed for this date of service:: HP, EX2 Assessment: Patient motivated to work on HEP and attentive to all patient education. Patient Education: Body/Joint mechanics, Home Exercise Program, Home Safety, Activity Modification Patient demonstrates compliance with HEP?: Yes Short Term Goals Goal #1: Pt and family independent in HEP. Goal to be met by: 06/10/19 Progress towards Goal:: Progressing Goal #2: Pt static balance improved to good. Goal to be met by: 06/10/19 Goal #3: SLR bilaterally to 40-45 degrees. Goal to be met by: 06/10/19 Goal #4: Tenderness of right hip decreased to minimal. Goal to be met by: 06/10/19 Manager Msw Goals Goal #1: Pt knows HEP and to continue ex's to maintain functional level at D/C. Goal to be met by: 07/06/19 Goal #2: Score on Oswestry LBP scale improved to 45. Goal to be met by: 07/06/19 Goal #3: Patient able to stand to perform ADL's and functional activities. Goal to be met by: 07/06/19 Goal #4: Score on Tinetti Assessment improved to 24, showing less risk for falls. Goal to be met by: 07/06/19 Plan Dates of Manager Msw Goals: 07/06/19 Expiration date of current Insurance Approval:: 07/06/19 PLAN: Continue progressive exercise and use modalities as needed to reduce pain and increase functional activity level.
--- NOTE | 2019-06-03 16:26 | RS.OPPTDN ---
Subjective Date of Note: 06/03/19 Visit #: 3 Number of visits approved by Insurance: na Date of Evaluation: 05/27/19 Payer Source: MEDICARE Treatment Diagnosis: Gait difficulty, impaired balance, LBP Current Subjective/complaints:: Patient reports she is seeing improvement in back pain and mobility in her home. States she is working on HEP. *Precautions: none Pain Assessment - Pain Description Pain Location: back Pain Description: Aching Current Pain Intensity: mild to mod - Heat/Cryotherapy Treatment: Hot Pack ([id number] to lowback prior to EX. Patient in sitting. ) Interventions - Exercise/Activities/Manual Therapy Exercises/Activities: Assisted stretching of the bilateral HS, SKTC, piriformis. Alt hip flexion. Isometric hip add with ball. Progressed to alt hip flexion with overhead shoulder flexion with wand. SLR and Isometric hip flexion. Gait training in hallway with cane, cues to use properly. Total minutes of Exercise: 26mins Manual Therapy: NA HOME EXERCISE PROGRAM: HS, SKTC, piriformis stretch, isometric hip add, isometric hip flexion - Charges Timed Code Treatment Minutes: 26mins Total Treatment Time: 50mins Procedures billed for this date of service:: HP, EX2 Assessment: Patient reporting feeling much better and doing more activities at home. Patient Education: Body/Joint mechanics, Home Exercise Program, Home Safety, Activity Modification Patient demonstrates compliance with HEP?: Yes Short Term Goals Goal #1: Pt and family independent in HEP. Goal to be met by: 06/10/19 Progress towards Goal:: Progressing Goal #2: Pt static balance improved to good. Goal to be met by: 06/10/19 Goal #3: SLR bilaterally to 40-45 degrees. Goal to be met by: 06/10/19 Progress towards Goal:: Progressing Goal #4: Tenderness of right hip decreased to minimal. Goal to be met by: 06/10/19 Stoper Goals Goal #1: Pt knows HEP and to continue ex's to maintain functional level at D/C. Goal to be met by: 07/06/19 Goal #2: Score on Oswestry LBP scale improved to 45. Goal to be met by: 07/06/19 Goal #3: Patient able to stand to perform ADL's and functional activities. Goal to be met by: 07/06/19 Goal #4: Score on Tinetti Assessment improved to 24, showing less risk for falls. Goal to be met by: 07/06/19 Plan Dates of Stoper Goals: 07/06/19 Expiration date of current Insurance Approval:: 07/06/19 PLAN: Progress with strengthening and balance to increase safety with functional activity.
--- NOTE | 2019-06-05 14:57 | RS.OPPTDN ---
Subjective Date of Note: 06/05/19 Visit #: 4 Number of visits approved by Insurance: na Date of Evaluation: 05/27/19 Payer Source: MEDICARE Treatment Diagnosis: Gait difficulty, impaired balance, LBP Current Subjective/complaints:: Patient reports she is seeing progress with her ability to walk and perform light daily activities in her home. *Precautions: none Pain Assessment - Pain Description Pain Location: lowback Pain Description: Dull Pain Description: soreness Current Pain Intensity: mild to mod - Heat/Cryotherapy Treatment: Hot Pack ([id number] to the lowback prior to EX. Patient in sitting. ) Interventions - Exercise/Activities/Manual Therapy Exercises/Activities: Sitting alt hip flexion and LAQ. Assisted stretching of the bilateral HS, SKTC, piriformis. Alt hip flexion. Isometric hip add with ball. Progressed to alt hip flexion with overhead shoulder flexion with wand. SLR and hip abd. Isometric hip flexion. At handrail, side-stepping, marching, and toe-ups. Assisted onto stationary bike and patient performs at a slow pace for 3 mins. Gait training in hallway with cane, cues to use properly, as patient tends to "carry" cane while reaching for handrail. Total minutes of Exercise: 24mins Manual Therapy: NA HOME EXERCISE PROGRAM: HS, SKTC, piriformis stretch, isometric hip add, isometric hip flexion - Charges Timed Code Treatment Minutes: 24mins Total Treatment Time: 48mins Procedures billed for this date of service:: HP, EX2 Assessment: Patient progressing well with LE strengthening, balance work, and gait training. Patient Education: Home Exercise Program, Home Safety, Activity Modification Patient demonstrates compliance with HEP?: Yes Short Term Goals Goal #1: Pt and family independent in HEP. Goal to be met by: 06/10/19 Progress towards Goal:: Partially Met Goal #2: Pt static balance improved to good. Goal to be met by: 06/10/19 Progress towards Goal:: Progressing Goal #3: SLR bilaterally to 40-45 degrees. Goal to be met by: 06/10/19 Progress towards Goal:: Progressing Goal #4: Tenderness of right hip decreased to minimal. Goal to be met by: 06/10/19 Alf Goals Goal #1: Pt knows HEP and to continue ex's to maintain functional level at D/C. Goal to be met by: 07/06/19 Progress towards goal: Progressing Goal #2: Score on Oswestry LBP scale improved to 45. Goal to be met by: 07/06/19 Goal #3: Patient able to stand to perform ADL's and functional activities. Goal to be met by: 07/06/19 Progress towards goal: Progressing Goal #4: Score on Tinetti Assessment improved to 24, showing less risk for falls. Goal to be met by: 07/06/19 Plan Dates of Alf Goals: 07/06/19 Expiration date of current Insurance Approval:: 07/06/19 PLAN: Progress with exercise and balance activity to increase safety with all functional ADL's.
--- NOTE | 2019-06-10 15:46 | RS.OPPTDN ---
Subjective Date of Note: 06/10/19 Visit #: 5 Number of visits approved by Insurance: na Date of Evaluation: 05/27/19 Payer Source: MEDICARE Treatment Diagnosis: Gait difficulty, impaired balance, LBP Current Subjective/complaints:: Patient presents to department with small based "hurry cane" and states she feels she is walking better with it. States she is working on HEP as instructed and is getting stronger and back pain has also improved. *Precautions: none Pain Assessment - Pain Description Pain Location: back Current Pain Intensity: mild - Heat/Cryotherapy Treatment: Hot Pack ([id number] to the lowack prior to EX. Patient in sitting. ) Interventions - Exercise/Activities/Manual Therapy Exercises/Activities: Assisted stretching of the bilateral HS, SKTC, piriformis. Alt hip flexion with 2 1/2#. Isometric hip add with ball. Active LTR with ball between knees. Yellow thband resisted ankle df and hip abd in hook -lying. SLR and hip abd. Isometric hip flexion. In sitting, LAQ and alt hip flexion, both with 2 1/2# to each ankle. Assisted onto stationary bike and patient performs at a slow pace for 3 mins. Gait training in hallway with cane, cues to use properly and increase step height and stride length. Total minutes of Exercise: EX 24mins/27mins Manual Therapy: NA HOME EXERCISE PROGRAM: HS, SKTC, piriformis stretch, isometric hip add, isometric hip flexion - Charges Timed Code Treatment Minutes: 24mins Total Treatment Time: 47mins Procedures billed for this date of service:: HP, EX2 Assessment: Patient progressing strengthening exercise and demos improvement with amb with cane. Patient Education: Home Exercise Program, Home Safety, Activity Modification Patient demonstrates compliance with HEP?: Yes Short Term Goals Goal #1: Pt and family independent in HEP. Goal to be met by: 06/10/19 Progress towards Goal:: Partially Met Goal #2: Pt static balance improved to good. Goal to be met by: 06/10/19 Progress towards Goal:: Progressing Goal #3: SLR bilaterally to 40-45 degrees. Goal to be met by: 06/10/19 Progress towards Goal:: Progressing Goal #4: Tenderness of right hip decreased to minimal. Goal to be met by: 06/10/19 Financial Sales Manager Goals Goal #1: Pt knows HEP and to continue ex's to maintain functional level at D/C. Goal to be met by: 07/06/19 Progress towards goal: Progressing Goal #2: Score on Oswestry LBP scale improved to 45. Goal to be met by: 07/06/19 Goal #3: Patient able to stand to perform ADL's and functional activities. Goal to be met by: 07/06/19 Progress towards goal: Progressing Goal #4: Score on Tinetti Assessment improved to 24, showing less risk for falls. Goal to be met by: 07/06/19 Plan Dates of Financial Sales Manager Goals: 07/06/19 Expiration date of current Insurance Approval:: 07/06/19 PLAN: Progress toward safe and independent with functional gait and mobility.
--- NOTE | 2019-06-12 14:41 | RS.OPPTDN ---
Subjective Date of Note: 06/12/19 Visit #: 6 Number of visits approved by Insurance: NA Date of Evaluation: 05/27/19 Payer Source: MEDICARE Treatment Diagnosis: Gait difficulty, impaired balance, LBP Current Subjective/complaints:: Patient reports she is progressing with walking and with mobility around her home. *Precautions: none Pain Assessment - Pain Description Pain Location: lowback Pain Description: Tightness, Aching Current Pain Intensity: mild to mod - Heat/Cryotherapy Treatment: Hot Pack ([id number] to the lowback prior to EX. patient in sitting. ) Interventions - Exercise/Activities/Manual Therapy Exercises/Activities: Assisted stretching of the bilateral HS, SKTC, piriformis. Alt hip flexion increased to 3#. Isometric hip add with ball. Active LTR with ball between knees. Red tband resisted ankle df and hip abd in hook-lying. Added 1 1/2# to SLR. Hip abd. Isometric hip flexion. In sitting, LAQ and alt hip flexion, both with 2 1/2# to each ankle. Began resisted ankle df with yellow tband in sitting with LE crossed over other leg. Gait training in hallway with cane, cues to use properly and increase step height and stride length. Total minutes of Exercise: 27mins Manual Therapy: NA HOME EXERCISE PROGRAM: HS, SKTC, piriformis stretch, isometric hip add, isometric hip flexion, SLR, yellow tband for resisted ankle df, - Charges Timed Code Treatment Minutes: 27mins Total Treatment Time: 47mins Procedures billed for this date of service:: HP, EX2 Assessment: Patient progressing well with strengthening exercise and with reports of improved gait and mobility in her home. Patient Education: Home Exercise Program, Home Safety, Activity Modification Patient demonstrates compliance with HEP?: Yes Short Term Goals Goal #1: Pt and family independent in HEP. Goal to be met by: 06/10/19 Progress towards Goal:: Partially Met Goal #2: Pt static balance improved to good. Goal to be met by: 06/10/19 Progress towards Goal:: Progressing Goal #3: SLR bilaterally to 40-45 degrees. Goal to be met by: 06/10/19 Progress towards Goal:: Partially Met Goal #4: Tenderness of right hip decreased to minimal. Goal to be met by: 06/10/19 Progress towards Goal:: Progressing Stencil Maker Goals Goal #1: Pt knows HEP and to continue ex's to maintain functional level at D/C. Goal to be met by: 07/06/19 Progress towards goal: Progressing Goal #2: Score on Oswestry LBP scale improved to 45. Goal to be met by: 07/06/19 Goal #3: Patient able to stand to perform ADL's and functional activities. Goal to be met by: 07/06/19 Progress towards goal: Progressing Goal #4: Score on Tinetti Assessment improved to 24, showing less risk for falls. Goal to be met by: 07/06/19 Plan Dates of Stencil Maker Goals: 07/06/19 Expiration date of current Insurance Approval:: 07/06/19 PLAN: Progress exercise to increase patients safety and independence with functional ambulation.
--- NOTE | 2019-06-17 14:53 | RS.OPPTDN ---
Subjective Date of Note: 06/17/19 Visit #: 7 Number of visits approved by Insurance: NA Date of Evaluation: 05/27/19 Payer Source: MEDICARE Treatment Diagnosis: Gait difficulty, impaired balance, LBP Current Subjective/complaints:: States her back is doing much better. She is performing her exercises at home and asks good questions regarding hold time and reps with each exercise. States she wants to make sure she is doing them correctly so that she can continue them after she is done with therapy. States she is still getting used to using the straight cane. *Precautions: none Pain Assessment - Pain Description Pain Location: low back Current Pain Intensity: minimal to no pain today - Heat/Cryotherapy Treatment: Hot Pack (X 20 mins to low back while sitting in chair) Interventions - Exercise/Activities/Manual Therapy Exercises/Activities: Assisted with stretching of the bilateral HS, SKTC, piriformis. Right hip is very limited into ER. Left HS is tighter. Alt hip flexion with 3#. Isometric hip add with ball. Active LTR with ball between knees. Performs bilateral shoulder flexion with ball overhead while in hooklying X reps. Red tband resisted ankle df and hip abd in hook-lying. Performed with 1 1/2# for SLR. Hip abd with red theraband. Isometric hip flexion. In sitting, LAQ and alt hip flexion, both with 2 1/2# to each ankle. Performs ball raise over head X 10 reps while sitting on table. Total minutes of Exercise: 37 mins Manual Therapy: NA HOME EXERCISE PROGRAM: HS, SKTC, piriformis stretch, isometric hip add, isometric hip flexion, SLR, yellow tband for resisted ankle df, red theraband for hip abduction - Objective Findings Observations,measurements,etc.: Patient ambulates with straight cane with small base in right hand and keeps it out in front of her. She is slightly unsteady, but shows no loss of balance and does not depend on rail in hallway. - Charges Timed Code Treatment Minutes: 37 mins Total Treatment Time: 57 mins Procedures billed for this date of service:: HP, EX2 Assessment: Patient appears to be performing her exercises at home, per her questions and comments. She reports much less back pain. Expresses being surprised that therapy could help her pain. States she is getting used to the straight cane. Cane may need to be lowered for optimum use and safety. Patient demonstrates compliance with HEP?: Yes Short Term Goals Goal #1: Pt and family independent in HEP. Goal to be met by: 06/10/19 Progress towards Goal:: Partially Met Goal #2: Pt static balance improved to good. Goal to be met by: 06/10/19 Progress towards Goal:: Progressing Goal #3: SLR bilaterally to 40-45 degrees. Goal to be met by: 06/10/19 Progress towards Goal:: Progressing Comments:: Left HS tighter than right. Goal #4: Tenderness of right hip decreased to minimal. Goal to be met by: 06/10/19 Progress towards Goal:: Progressing Penitentiary Goals Goal #1: Pt knows HEP and to continue ex's to maintain functional level at D/C. Goal to be met by: 07/06/19 Progress towards goal: Progressing Goal #2: Score on Oswestry LBP scale improved to 45. Goal to be met by: 07/06/19 Goal #3: Patient able to stand to perform ADL's and functional activities. Goal to be met by: 07/06/19 Progress towards goal: Progressing Goal #4: Score on Tinetti Assessment improved to 24, showing less risk for falls. Goal to be met by: 07/06/19 Plan Dates of Speech Language Pathologist Assistant Goals: 07/06/19 Expiration date of current Insurance Approval:: NA PLAN: Progress LE exercises and gait training to improve safety with ambulation.
--- NOTE | 2019-06-19 16:23 | RS.OPPTDN ---
Subjective Date of Note: 06/19/19 Visit #: 8 Number of visits approved by Insurance: na Date of Evaluation: 05/27/19 Payer Source: MEDICARE Treatment Diagnosis: Gait difficulty, impaired balance, LBP Current Subjective/complaints:: Patient reports she is pleased at her progress with therapy. States she is walking better with cane and feels much safer in her home. States she needs more assist when going outside or in public. *Precautions: none Pain Assessment - Pain Description Pain Location: lowback Current Pain Intensity: no pain at present Worst Pain Intensity: mild at times with activity - Heat/Cryotherapy Treatment: Hot Pack ([id number] to the lowback prior to EX. patient in sitting. ) Interventions - Exercise/Activities/Manual Therapy Exercises/Activities: Assisted with stretching of the bilateral HS, SKTC, piriformis. Alt hip flexion with 3#. Isometric hip add with ball. Active LTR with ball between knees. Performs bilateral shoulder flexion with ball overhead while in hooklying. Red tband resisted ankle df, pf, inversion, and eversion. Also red theraband for hip abd in hook-lying. 1 1/2# for SLR. Hip abd with red theraband. Isometric hip flexion. In sitting, LAQ and alt hip flexion, both with 1 1/2# to each ankle. Assisted onto stationary bike and performs 3mins. Assisted onto and off leg press, 30# 20reps slow pace. Practiced walking in hallway with cane and cues to watch lifting feet/not drag toes when stepping. Total minutes of Exercise: EX 32mins Manual Therapy: NA HOME EXERCISE PROGRAM: HS, SKTC, piriformis stretch, isometric hip add, isometric hip flexion, SLR, yellow tband for resisted ankle df, red theraband for hip abduction - Charges Timed Code Treatment Minutes: 32mins Total Treatment Time: 52mins Procedures billed for this date of service:: HP, EX2 Assessment: Patient progressing with strengthening, gait pattern, and reports of increased confidence with functional mobility and activity at home. Patient Education: Home Exercise Program, Home Safety, Activity Modification Patient demonstrates compliance with HEP?: Yes Short Term Goals Goal #1: Pt and family independent in HEP. Goal to be met by: 06/10/19 Progress towards Goal:: Partially Met Goal #2: Pt static balance improved to good. Goal to be met by: 06/10/19 Progress towards Goal:: Progressing Goal #3: SLR bilaterally to 40-45 degrees. Goal to be met by: 06/10/19 Progress towards Goal:: Progressing Goal #4: Tenderness of right hip decreased to minimal. Goal to be met by: 06/10/19 Progress towards Goal:: Progressing Senior Care Goals Goal #1: Pt knows HEP and to continue ex's to maintain functional level at D/C. Goal to be met by: 07/06/19 Progress towards goal: Progressing Goal #2: Score on Oswestry LBP scale improved to 45. Goal to be met by: 07/06/19 Goal #3: Patient able to stand to perform ADL's and functional activities. Goal to be met by: 07/06/19 Progress towards goal: Progressing Goal #4: Score on Tinetti Assessment improved to 24, showing less risk for falls. Goal to be met by: 07/06/19 Plan Dates of Senior Care Goals: 07/06/19 Expiration date of current Insurance Approval:: 07/06/19 PLAN: Progress with exercise and balance activity to increase safety and functional activity level.
--- NOTE | 2019-06-24 15:33 | RS.OPPTDN ---
Subjective Date of Note: 06/24/19 Visit #: 9 Number of visits approved by Insurance: na Date of Evaluation: 05/27/19 Payer Source: MEDICARE Treatment Diagnosis: Gait difficulty, impaired balance, LBP Current Subjective/complaints:: Patient reports she is consistently working on HEP and was able to increase to 25reps of SLR. States she is walking better with cane and trying to do a heel strike. *Precautions: none Pain Assessment - Pain Description Pain Location: lowback Pain Description: Dull Current Pain Intensity: mild - Heat/Cryotherapy Treatment: Hot Pack ([id number] to the LB and hips prior to EX. patient in supine. ) Interventions - Exercise/Activities/Manual Therapy Exercises/Activities: Assisted with stretching of the bilateral HS, SKTC, and LTR. Increased to 4# for alt hip flexion, 3s/10reps. Isometric hip add and isometric ankle inversion, both with ball. Red tband resisted ankle df, pf, inversion, and eversion. Yellow theraband for ham curls, hip abd and hip add in hook-lying. SLR with 1#. In sitting, LAQ and alt hip flexion, both with 1 1/2 # to each ankle. Assisted onto and off leg press, 30# 3s/10reps slow pace. Practiced walking in hallway with cane and cues to heel strike/toe-off walk, and to increase step height. Total minutes of Exercise: EX 25mins, GT 3mins Manual Therapy: NA HOME EXERCISE PROGRAM: HS, SKTC, piriformis stretch, isometric hip add, isometric hip flexion, SLR, yellow tband for resisted ankle df, red theraband for hip abduction - Charges Timed Code Treatment Minutes: 28mins Total Treatment Time: 48mins Procedures billed for this date of service:: HP, EX2 Assessment: Pt progressing with strengthening exercise and improving her ambulation with cane. Patient Education: Home Exercise Program, Home Safety Patient demonstrates compliance with HEP?: Yes Short Term Goals Goal #1: Pt and family independent in HEP. Goal to be met by: 06/10/19 Progress towards Goal:: Partially Met Goal #2: Pt static balance improved to good. Goal to be met by: 06/10/19 Progress towards Goal:: Progressing Goal #3: SLR bilaterally to 40-45 degrees. Goal to be met by: 06/10/19 Progress towards Goal:: Progressing Goal #4: Tenderness of right hip decreased to minimal. Goal to be met by: 06/10/19 Progress towards Goal:: Progressing Refractory Manager Goals Goal #1: Pt knows HEP and to continue ex's to maintain functional level at D/C. Goal to be met by: 07/06/19 Progress towards goal: Progressing Goal #2: Score on Oswestry LBP scale improved to 45. Goal to be met by: 07/06/19 Goal #3: Patient able to stand to perform ADL's and functional activities. Goal to be met by: 07/06/19 Progress towards goal: Progressing Goal #4: Score on Tinetti Assessment improved to 24, showing less risk for falls. Goal to be met by: 07/06/19 Plan Dates of Refractory Manager Goals: 07/06/19 Expiration date of current Insurance Approval:: 07/06/19 PLAN: Progress exercise and balance activity to redcue back pain and increase functional activity level.
--- NOTE | 2019-06-26 15:34 | RS.OPPTDN ---
Subjective Date of Note: 06/26/19 Visit #: 10 Number of visits approved by Insurance: na Date of Evaluation: 05/27/19 Payer Source: MEDICARE Treatment Diagnosis: Gait difficulty, impaired balance, LBP Current Subjective/complaints:: Patient reports she is pleased with her progress. States she is stronger and walking better. States she is going short distances without AD in home and using cane in community. She reports she is consistently working on HEP. *Precautions: none Pain Assessment - Pain Description Pain Location: lowback Pain Description: Tightness, Aching Current Pain Intensity: no pain at rest, mod with some activity - Heat/Cryotherapy Treatment: Hot Pack ([id number] to the lowback prior to EX. Patient in supine. ) Interventions - Exercise/Activities/Manual Therapy Exercises/Activities: Assisted with stretching of the bilateral HS, SKTC, and LTR. 4# to LE's for resisted alt hip flexion, 3s/10reps. Isometric hip add and isometric ankle inversion, both with ball. Red tband resisted ankle df, 3s/ 10reps Yellow theraband for ham curls, hip abd and hip add in hook-lying. SLR with 1#. LTR with ball between knees. In sitting, LAQ and alt hip flexion, both with 3# to each ankle. Double SAQ with ball between feet. Assisted onto and off leg press, increased to 45# 3s/10reps slow pace. Standing at handrail for toe-ups, mini-squats, and alt hip abd. SIde-stepping and heel-toe walking with use of handrail and ACADEMY DIRECTOR. Cues to increase step height when walking in hallway with cane. Total minutes of Exercise: EX 32mins Manual Therapy: NA HOME EXERCISE PROGRAM: HS, SKTC, piriformis stretch, isometric hip add, isometric hip flexion, SLR, yellow tband for resisted ankle df, red theraband for hip abduction - Objective Findings Observations,measurements,etc.: Patient increases Oswestry LBP score to 18 or 36 % (was 30 or 60% on Eval), and improves Tinetti score to 20/28 or 27% impairment (was 16/20 or 43% on Eval. - Charges Timed Code Treatment Minutes: 32mins Total Treatment Time: 52mins Procedures billed for this date of service:: HP, EX2 Assessment: Patient progressing well with strengthening and balance activity. She has met 3 of 8 treatment goals and has potential to make further progress. Patient Education: Home Exercise Program, Home Safety, Activity Modification Patient demonstrates compliance with HEP?: Yes Short Term Goals Goal #1: Pt and family independent in HEP. Goal to be met by: 06/10/19 Progress towards Goal:: Met Goal #2: Pt static balance improved to good. Goal to be met by: 06/10/19 Progress towards Goal:: Progressing Goal #3: SLR bilaterally to 40-45 degrees. Goal to be met by: 06/10/19 Progress towards Goal:: Partially Met Comments:: SLR to 40 degrees bilaterally. Goal #4: Tenderness of right hip decreased to minimal. Goal to be met by: 06/10/19 Progress towards Goal:: Met Security Clerk Goals Goal #1: Pt knows HEP and to continue ex's to maintain functional level at D/C. Goal to be met by: 07/06/19 Progress towards goal: Progressing Goal #2: Score on Oswestry LBP scale improved to 45. Goal to be met by: 07/06/19 Progress towards goal: Met Comments: 36% today Goal #3: Patient able to stand to perform ADL's and functional activities. Goal to be met by: 07/06/19 Progress towards goal: Progressing Goal #4: Score on Tinetti Assessment improved to 24, showing less risk for falls. Goal to be met by: 07/06/19 Progress towards goal: Progressing Comments: Progressed to today Plan Dates of Security Clerk Goals: 07/06/19 Expiration date of current Insurance Approval:: 07/06/19 PLAN: Continue exercise to increase safety and independence with functional activities.
--- NOTE | 2019-06-27 15:31 | RS.PTSUM ---
Progress Note/Summary Date of Note: 06/26/19 Date of Evaluation: 05/27/19 Number of Visits: 10 Reporting Period for this Progress Note: 05/27/19 through 06/26/19 Current Complaints/Gains: Ms. Farias reports she is feeling stronger and walking with better balance and confidence. She reports ambulating short distances in her home without an assistive device. She is using a straight cane in the community. She is performing her HEP as advised. Objective Measurements/Presentation: Oswestry LBP scale 36% impairment (was 60% impairment at initial evaluation). Tinetti Assessment , (was at initial evaluation.). Ms. Farias presents to be independent in her HEP. She reports minimal to no pain in the right hip. Performs some standing for limited ADL's at home. Demonstrates SLR to 40 degrees bilaterally. G Codes: NA Source of G Code Score: Na - Short Term Goals Goal #1: Pt and family independent in HEP. Goal to be met by: 07/04/19 Progress towards Goal:: Partially Met Goal #2: Pt static balance improved to good. Goal to be met by: 07/04/19 Progress towards Goal:: Progressing Goal #3: SLR bilaterally to 40-45 degrees. Goal to be met by: 07/04/19 Progress towards Goal:: Progressing Goal #4: Tenderness of right hip decreased to minimal. Goal to be met by: 07/04/19 Progress towards Goal:: Progressing - Steward/Stewardess Room Goals Goal #1: Pt knows HEP and to continue ex's to maintain functional level at D/C. Goal to be met by: 07/06/19 Progress towards goal: Progressing Goal #2: Score on Oswestry LBP scale improved to 45. Goal to be met by: 07/06/19 Progress towards goal: Met Goal #3: Patient able to stand to perform ADL's and functional activities. Goal to be met by: 07/06/19 Progress towards goal: Progressing Goal #4: Score on Tinetti Assessment improved to 24, showing less risk for falls. Goal to be met by: 07/06/19 Progress towards goal: No Change - Assessment Assessment of Improvement/Progress: Ms. Farias has shown improvement in both of the FOM's: Oswestry and Tinetti. Even though her score has improved on the Tinetti Assessment, she continues to be at moderate risk for falls. She has potential to gain further improvement with continued therapy. - Plan Plan: Continue Plan of Care Frequency: 1-2 X week Duration: 1 week Dates of Jail Goals: 07/06/19 Expiration date of current Insurance Approval:: ANGELA
== END 2019-06-28 23:59 ==
PROVIDERS: ATTEND Family Medicine
DX: R26.89 Other abnormalities of gait and mobility (principal); M54.5 Low back pain; G89.29 Other chronic pain; F33.1 Major depressive disorder, recurrent, moderate
CPT/HCPCS: 90853; 99213

== ENCOUNTER 2019-06-27 10:00 | Outpatient (RCR) | payer OTHER | END 2019-06-28 23:59 | LOC: NEWBEG 10:00 | PROVIDERS: ATTEND Psychiatry & Neurology Psychiatry | DX: F33.1 Major depressive disorder, recurrent, moderate (principal) | CPT/HCPCS: 90853; 99213 ==

== ENCOUNTER 2024-05-13 13:24 | Inpatient (IN) ==
[2024-05-13 13:30] VITALS: BMI 26.4
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
[2024-05-13 13:42] LABS: BASOPHILS % (AUTO) 0.4 % (0.0-3.0); EOSINOPHILS # (AUTO) 0.2 K/ul (0.0-0.7); EOSINOPHILS % (AUTO) 1.7 % (0.0-7.0); HEMATOCRIT 34.4 % (37.0-47.0); HEMOGLOBIN 11.5 g/dl (12.0-16.0); IMMATURE GRANULOCYTE % (AUTO) 0.4 % (0.0-5.0); LYMPHOCYTES # (AUTO) 1.6 K/uL (0.60-3.4); LYMPHOCYTES % (AUTO) 14.4 (10.0-50.0); MEAN CORPUSCULAR HEMOGLOBIN 32.5 pg (27.0-31.0); MEAN CORPUSCULAR HGB CONC 33.4 (31.8-35.4); MEAN CORPUSCULAR VOLUME 97.2 fl (81.0-99.0); MONOCYTES # (AUTO) 0.9 K/uL (0.4-2.0); MONOCYTES % (AUTO) 7.6 (0-10); NEUTROPHILS # (AUTO) 8.5 K/ul (2.0-6.9); NEUTROPHILS % (AUTO) 75.5 % (42.2-75.2); PLATELET COUNT 256 10^3/uL (140-440); RDW COEFFICIENT OF VARIATION 12.6 % (11.6-14.8); RED BLOOD COUNT 3.54 10^6/ul (4.20-5.40); WHITE BLOOD COUNT 11.28 K/ul (4.6-10.2)
--- NOTE | 2024-05-13 13:48 | DI ---
EXAM: CHEST RADIOGRAPH TECHNIQUE: Single frontal chest radiograph. COMPARISON: 07/14/2017 HISTORY: Shortness of breath. FINDINGS: The heart and mediastinum are stable. The lungs and pleural spaces appear within normal limits. No acute abnormality of the bones or soft tissues is identified. IMPRESSION: No evidence of acute disease.
[2024-05-13] MEDS: ASPIRIN CHEWABLE PO STA (13:50)
[2024-05-13] MEDS: CARDIZEM INJ IVP STA (13:50)
[2024-05-13] MEDS: SODIUM CHLORIDE 1,000 ML IV ONE (13:50)
[2024-05-13 13:55] LABS: ALBUMIN 3.55 g/dL (3.5-5.0); ALKALINE PHOSPHATASE 101.9 U/L (53-141); ASPARTATE AMINO TRANSFERASE 29.8 U/L (14-36); BILIRUBIN,TOTAL 0.52 mg/dL (0.2-1.3); BLOOD UREA NITROGEN 21.9 mg/dL (7-17); CALCIUM 9.58 mg/dL (8.4-10.2); CARBON DIOXIDE 23.5 mmol/L (22-30.0); CHLORIDE 96.7 mmol/L (98-107); CREATININE 1.18 mg/dL (0.60-1.30); GLUCOSE 104.2 mg/dL (74-106); POTASSIUM 5.02 mmol/L (3.5-5.1); SODIUM 125.9 mmol/L (134.5-145); TOTAL PROTEIN 6.14 g/dL (6.3-8.2)
[2024-05-13 14:06] LABS: TROPONIN I < 0.012 ng/ml (0.0000-0.120)
[2024-05-13 14:40] LABS: PARTIAL THROMBOPLASTIN TIME 27.2 SEC (23.9-40.0); PROTHROMBIN TIME 10.6 SEC (9.3-11.0)
[2024-05-13 14:46] LABS: SARS COV-2 RNA RAPID NAAT NEGATIVE (NEGATIVE)
[2024-05-13] MEDS: LASIX IVP STA (14:56)
[2024-05-13 15:22] LABS: BILIRUBIN,URINE Negative (NEGATIVE); CLARITY,URINE Slightly (CLEAR); COLOR,URINE Yellow (YELLOW); GLUCOSE, URINE (UA) Negative (NEGATIVE); KETONES,URINE Negative (NEGATIVE); LEUKOCYTE ESTERASE ,URINE Trace (NEGATIVE); NITRITE,URINE Negative (NEGATIVE); PROTEIN,URINE Negative (NEGATIVE); URINE, BLOOD Negative (NEGATIVE)
[2024-05-13 15:28] LABS: URINE RBC, MICROSCOPIC 0-2 (0-2); URINE WBC, MICROSCOPIC 30-50 (0-2)
[2024-05-13 15:29] LABS: BACTERIA,URINE 4+ (NOT PRESENT); TRIPLE PHOSPHATE CRYSTAL,UR 1+ (NOT PRESENT)
[2024-05-13] MEDS ORDERED: TYLENOL PO PRN (15:38)
[2024-05-13] MEDS: SODIUM CHLORIDE PO SCH (17:25)
[2024-05-13] MEDS ORDERED: VENTOLIN HFA IH PRN (17:56)
[2024-05-13] MEDS: ACTIGALL PO SCH (20:16)
[2024-05-13] MEDS: COREG PO SCH (20:16)
[2024-05-13] MEDS: COLACE PO SCH (20:16)
[2024-05-13] MEDS: ELIQUIS PO SCH (20:16)
[2024-05-13] MEDS: NORCO 7.5-325 PO PRN (20:20)
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
[2024-05-13] MEDS: LASIX IVP SCH (21:29)
[2024-05-13] MEDS: ROCEPHIN 1 GM/50 ML D5W 1 GM/50 ML BAG IV SCH (22:12)
[2024-05-14 05:15] LABS: BASOPHILS % (AUTO) 0.3 % (0.0-3.0); EOSINOPHILS # (AUTO) 0.2 K/ul (0.0-0.7); EOSINOPHILS % (AUTO) 2.5 % (0.0-7.0); HEMATOCRIT 34.4 % (37.0-47.0); HEMOGLOBIN 11.4 g/dl (12.0-16.0); IMMATURE GRANULOCYTE % (AUTO) 0.4 % (0.0-5.0); LYMPHOCYTES # (AUTO) 1.5 K/uL (0.60-3.4); LYMPHOCYTES % (AUTO) 19.5 (10.0-50.0); MEAN CORPUSCULAR HEMOGLOBIN 31.8 pg (27.0-31.0); MEAN CORPUSCULAR HGB CONC 33.1 (31.8-35.4); MEAN CORPUSCULAR VOLUME 96.1 fl (81.0-99.0); MONOCYTES # (AUTO) 0.7 K/uL (0.4-2.0); MONOCYTES % (AUTO) 9.3 (0-10); NEUTROPHILS # (AUTO) 5.3 K/ul (2.0-6.9); PLATELET COUNT 210 10^3/uL (140-440); RDW COEFFICIENT OF VARIATION 12.4 % (11.6-14.8); RED BLOOD COUNT 3.58 10^6/ul (4.20-5.40); WHITE BLOOD COUNT 7.71 K/ul (4.6-10.2)
[2024-05-14 05:31] LABS: ALANINE AMINOTRANSFERASE 10.5 U/L (0-35); ALBUMIN 3.45 g/dL (3.5-5.0); ALKALINE PHOSPHATASE 85.2 U/L (53-141); ASPARTATE AMINO TRANSFERASE 23.7 U/L (14-36); BILIRUBIN,TOTAL 0.59 mg/dL (0.2-1.3); BLOOD UREA NITROGEN 21.3 mg/dL (7-17); CALCIUM 9.97 mg/dL (8.4-10.2); CARBON DIOXIDE 27.8 mmol/L (22-30.0); CHLORIDE 97.8 mmol/L (98-107); CREATININE 1.17 mg/dL (0.60-1.30); POTASSIUM 4.36 mmol/L (3.5-5.1); TOTAL PROTEIN 5.86 g/dL (6.3-8.2)
[2024-05-14] MEDS: ZESTRIL PO SCH (09:03)
[2024-05-14] MEDS: ACTIGALL PO SCH (09:03)
[2024-05-14] MEDS: FERROUS SULFATE PO SCH (09:04)
--- NOTE | 2024-05-14 09:12 | PCM.PROG ---
Date/Time Seen Date Seen by Provider: 05/14/24 Time Seen by Provider: 08:30 Provider Provider: ANTONIO ROSARIO, [facility] Chief Complaint Chief Complaint: CHF; HYPONATREMIA Subjective Subjective: Reports feeling better this am. No further complaints of chest pain. Heart rate controlled at this time. Objective Appearance: Positive No Apparent Distress and Alert and Oriented x3 Chest/Lungs: Positive Symmetrical With Equal Breath Sounds, Clear to Auscul tation Bilaterally and Good Air Movement all 4 Lung Chávez Heart: Positive RRR and Pulses Normal GI/: Positive Soft, Nontender, Bowel Sounds Normal and No Distention Musculoskeletal: Positive Not Examined Neurological: Positive Sensation Intact, Motor intact, Alert, Oriented and Other (generalized weakness) Additional Findings: +1-2 pitting edema BLE Vital Signs Vital Signs: Vital Signs: Last 24 Hours 05/13/24 13:25 05/13/24 13:29 05/13/24 16:24 Temperature 97.6 F 97.4 F L Temperature Source Infrared Temporal Artery Scan Pulse Rate 102 H 90 Respiratory Rate 20 16 Blood Pressure 155/94 H Blood Pressure Mean Blood Pressure Left Arm 135/90 Blood Pressure Location Blood Pressure Position Sitting O2 Sat by Pulse Oximetry 99 94 L Oxygen Delivery Method Room Air Height 5 ft 5 in 5 ft 5 in Weight 158 lb 8.198 oz 141 lb 3.2 oz 159 lb Telemetry Type Telemetry Monitoring Irregular Telemetry Rate (Approximate) EKG QRS Interval Telemetry Strip Reading 05/13/24 16:24 05/13/24 17:00 05/13/24 17:00 Temperature Temperature Source Pulse Rate Respiratory Rate Blood Pressure Blood Pressure Mean Blood Pressure Left Arm Blood Pressure Location Blood Pressure Position O2 Sat by Pulse Oximetry Oxygen Delivery Method Room Air Room Air Room Air Height Weight Telemetry Type Telemetry Monitoring Irregular Telemetry Rate (Approximate) EKG QRS Interval Telemetry Strip Reading 05/13/24 17:33 05/13/24 18:00 05/13/24 18:00 Temperature 97.3 F L Temperature Source Temporal Artery Scan Pulse Rate 92 Respiratory Rate 18 Blood Pressure 117/78 Blood Pressure Mean 91 Blood Pressure Left Arm Blood Pressure Location Left Arm Blood Pressure Position O2 Sat by Pulse Oximetry 94 L Oxygen Delivery Method Room Air Room Air Height Weight Telemetry Type Remote Telemetry Telemetry Monitoring Started Irregular Telemetry Rate (Approximate) EKG QRS Interval 0.05 L Telemetry Strip Reading Afib 05/13/24 19:00 05/13/24 19:00 05/13/24 20:00 Temperature Temperature Source Pulse Rate Respiratory Rate Blood Pressure Blood Pressure Mean Blood Pressure Left Arm Blood Pressure Location Blood Pressure Position O2 Sat by Pulse Oximetry Oxygen Delivery Method Room Air Room Air Height Weight Telemetry Type Remote Telemetry Telemetry Monitoring Started Irregular Telemetry Rate (Approximate) 70-80 BPM EKG QRS Interval 0.08 Telemetry Strip Reading a fib 05/13/24 20:00 05/13/24 20:32 05/13/24 21:00 Temperature 97.4 F L Temperature Source Oral Pulse Rate 80 Respiratory Rate 17 Blood Pressure 120/78 Blood Pressure Mean 92 Blood Pressure Left Arm Blood Pressure Location Left Arm Blood Pressure Position Sitting O2 Sat by Pulse Oximetry 97 Oxygen Delivery Method Room Air Room Air Room Air Height Weight Telemetry Type Telemetry Monitoring Irregular Telemetry Rate (Approximate) EKG QRS Interval Telemetry Strip Reading 05/13/24 22:00 05/13/24 23:00 05/14/24 00:00 Temperature Temperature Source Pulse Rate Respiratory Rate Blood Pressure Blood Pressure Mean Blood Pressure Left Arm Blood Pressure Location Blood Pressure Position O2 Sat by Pulse Oximetry Oxygen Delivery Method Room Air Room Air Room Air Height Weight Telemetry Type Telemetry Monitoring Irregular Telemetry Rate (Approximate) EKG QRS Interval Telemetry Strip Reading 05/14/24 01:00 05/14/24 01:00 05/14/24 02:00 Temperature Temperature Source Pulse Rate Respiratory Rate Blood Pressure Blood Pressure Mean Blood Pressure Left Arm Blood Pressure Location Blood Pressure Position O2 Sat by Pulse Oximetry Oxygen Delivery Method Room Air Room Air Height Weight Telemetry Type Remote Telemetry Telemetry Monitoring Continues Irregular Telemetry Rate (Approximate) 60-70 BPM EKG QRS Interval 0.06 Telemetry Strip Reading a fib 05/14/24 03:00 05/14/24 04:00 05/14/24 05:00 Temperature Temperature Source Pulse Rate Respiratory Rate Blood Pressure Blood Pressure Mean Blood Pressure Left Arm Blood Pressure Location Blood Pressure Position O2 Sat by Pulse Oximetry Oxygen Delivery Method Room Air Room Air Room Air Height Weight Telemetry Type Telemetry Monitoring Irregular Telemetry Rate (Approximate) EKG QRS Interval Telemetry Strip [place] 05/14/24 05:29 05/14/24 05:35 05/14/24 06:00 Temperature 97.4 F L Temperature Source Oral Pulse Rate 69 Respiratory Rate 16 Blood Pressure 116/72 Blood Pressure Mean 86 Blood Pressure Left Arm Blood Pressure Location Left Arm Blood Pressure Position Supine O2 Sat by Pulse Oximetry 98 Oxygen Delivery Method Room Air Room Air Height Weight 155 lb 3 oz Telemetry Type Telemetry Monitoring Irregular Telemetry Rate (Approximate) EKG QRS Interval Telemetry Strip Reading 05/14/24 07:00 05/14/24 08:00 05/14/24 08:00 Temperature Temperature Source Pulse Rate Respiratory Rate Blood Pressure Blood Pressure Mean Blood Pressure Left Arm Blood Pressure Location Blood Pressure Position O2 Sat by Pulse Oximetry Oxygen Delivery Method Room Air Room Air Room Air Height Weight Telemetry Type Telemetry Monitoring Irregular Telemetry Rate (Approximate) EKG QRS Interval Telemetry Strip Reading 05/14/24 08:47 Temperature Temperature Source Pulse Rate Respiratory Rate Blood Pressure Blood Pressure Mean Blood Pressure Left Arm Blood Pressure Location Blood Pressure Position O2 Sat by Pulse Oximetry Oxygen Delivery Method Room Air Height Weight Telemetry Type Telemetry Monitoring Irregular Telemetry Rate (Approximate) EKG QRS Interval Telemetry Strip Reading Lab Results Lab Results: Lab Results: Last 24 Hours 05/14/24 05/13/24 05/13/24 05:05 21:00 15:00 WBC 7.71 RBC 3.58 L Hgb 11.4 L Hct 34.4 L MCV 96.1 MCH 31.8 H MCHC 33.1 RDW Coeff of Penny 12.4 Plt Count 210 Immature Gran % (Auto) 0.4 Neut % (Auto) 68.0 Lymph % (Auto) 19.5 [place] % (Auto) 9.3 Eos % (Auto) 2.5 Baso % (Auto) 0.3 Neut # (Auto) 5.3 Lymph # (Auto) 1.5 [place] # (Auto) 0.7 Eos # (Auto) 0.2 Baso # (Auto) 0.0 Immature Gran # (Auto) 0.0 PT INR APTT Sodium 129.0 L Potassium 4.36 Chloride 97.8 L Carbon Dioxide 27.8 Anion Gap 7.76 BUN 21.3 H Creatinine 1.17 Estimated GFR (MDRD) 44.00 BUN/Creatinine Ratio 18.20 Glucose 90.0 Calcium 9.97 Total Bilirubin 0.59 AST 23.7 ALT 10.5 Alkaline Phosphatase 85.2 Troponin I < 0.012 NT-Pro-B Natriuret Pep Total Protein 5.86 L Albumin 3.45 L Globulin 2.41 Albumin/Globulin Ratio 1.43 Urine Color Yellow Urine Clarity Slightly Urine pH 6.0 Ur Specific [place] 1.015 Urine Protein Negative Urine Glucose (UA) Negative Urine Ketones Negative Urine Blood Negative Urine Nitrite Negative Urine Bilirubin Negative Urine Urobilinogen 1.0 H Ur Leukocyte Esterase Trace H Urine Microscopic RBC 0-2 Urine Microscopic WBC 30-50 Ur Squamous Epith Cells 10-20 Triple Phos Crystals 1+ Urine Bacteria 4+ SARS CoV-2 RNA Rapid FELICIANO 05/13/24 05/13/24 14:25 13:35 WBC 11.28 H RBC 3.54 L Hgb 11.5 L Hct 34.4 L MCV 97.2 MCH 32.5 H MCHC 33.4 RDW Coeff of Penny 12.6 Plt Count 256 Immature Gran % (Auto) 0.4 Neut % (Auto) 75.5 H Lymph % (Auto) 14.4 [place] % (Auto) 7.6 Eos % (Auto) 1.7 Baso % (Auto) 0.4 Neut # (Auto) 8.5 H Lymph # (Auto) 1.6 [place] # (Auto) 0.9 Eos # (Auto) 0.2 Baso # (Auto) 0.0 Immature Gran # (Auto) 0.0 PT 10.6 INR 1.02 APTT 27.2 Sodium 125.9 L Potassium 5.02 Chloride 96.7 L Carbon Dioxide 23.5 Anion Gap 10.72 BUN 21.9 H Creatinine 1.18 Estimated GFR (MDRD) 43.00 BUN/Creatinine Ratio 18.55 Glucose 104.2 Calcium 9.58 Total Bilirubin 0.52 AST 29.8 ALT 11.0 Alkaline Phosphatase 101.9 Troponin I < 0.012 NT-Pro-B Natriuret Pep 2010 H Total Protein 6.14 L Albumin 3.55 Globulin 2.59 Albumin/Globulin Ratio 1.37 Urine Color Urine Clarity Urine pH Ur Specific [place] Urine Protein Urine Glucose (UA) Urine Ketones Urine Blood Urine Nitrite Urine Bilirubin Urine Urobilinogen Ur Leukocyte Esterase Urine Microscopic RBC Urine Microscopic WBC Ur Squamous Epith Cells Triple Phos Crystals Urine Bacteria SARS CoV-2 RNA Rapid FELICIANO Negative Additional Comments Additional Comments: I have independently reviewed and interpreted the labs/EKGs/imaging ordered during this hospital stay. I have reviewed outside records that are available in our EMR that pertain to medical stay including imaging/notes/labs from previous visits. Active Medications Active Medications: Medications Generic Name Dose Route Start Last Admin Trade Name Freq PRN Reason Stop Dose Admin Acetaminophen 650 mg 05/13/24 15:38 Acetaminophen 325 Mg Tablet PO Q4H PRN Mild Pain Hydrocodone Bitart/Acetaminophen 1 tab 05/13/24 17:56 05/13/24 20:20 Hydrocodone Bit/Acetaminophen 7.5/325 Mg Tablet PO 1 tab Q4HR PRN Administration Pain Albuterol Sulfate 1 puff 05/13/24 17:56 Albuterol Sulfate 8 Gm Inhaler IH Q4H PRN Wheezing Apixaban 5 mg 05/13/24 21:00 05/14/24 09:03 Apixaban 5 Mg Tab PO 5 mg BID HEAVENLY Administration Carvedilol 6.25 mg 05/14/24 17:00 Carvedilol 6.25 Mg Tablet PO BIDWM2 HEAVENLY Docusate Sodium 100 mg 05/13/24 21:00 05/13/24 20:16 Docusate Sodium 100 Mg Capsule PO 100 mg BEDTIME HEAVENLY Administration Ferrous Sulfate 324 mg 05/14/24 09:00 05/14/24 09:04 Ferrous Sulfate 324 Mg Tablet. PO 324 mg DAILY HEAVENLY Administration Furosemide 40 mg 05/13/24 21:00 05/14/24 05:40 Furosemide Inj 40 Mg/4 Ml Vial IVP 40 mg BIDAC2 HEAVENLY Administration CEFTRIAXONE/D5W 1 GM PREMIX 1 gm in 50 mls @ 100 mls/hr 05/14/24 21:00 Rocephin 1 Gm/50 Ml D5w IV 05/16/24 21:59 BEDTIME HEAVENLY Lisinopril 5 mg 05/14/24 09:00 05/14/24 09:03 Lisinopril 5 Mg Tablet PO 5 mg DAILY HEAVENLY Administration Sodium Chloride 1 gm 05/13/24 17:00 05/14/24 09:03 Sodium Chloride 1 Gm Tablet PO 1 gm QID HEAVENLY Administration Ursodiol 300 mg 05/13/24 21:00 05/13/24 20:16 Ursodiol 300 Mg Capsule PO 300 mg BEDTIME HEAVENLY Administration Ursodiol 600 mg 05/14/24 09:00 05/14/24 09:03 Ursodiol 300 Mg Capsule PO 600 mg DAILY HEAVENLY Administration Plan Plan: 1. CHF Exacerbation - Improving, diuresing well, lasix 40 mg IVP BID, I&O, daily weight, 1800 fluid restriction, hold home diuretic, recommend echo outpatient 2. Acute on Chronic Hyponatremia - Improving, 129 this am, osmolalities ordered due to none noted previously, fluid restriction, salt tabs QID 3. UTI - urine culture showing gram neg rods, rocephin Q24H 4. Chest pain - Resolved, likely due to afib rvr, telemetry, serial troponins negative 5. Afib - no longer in RVR, telemetry, continue home medications, monitor 6. Hypertension - chronic, continue home medications DVT Prophylaxis: Jenniferquantonio Review Statement Review Statement: I have personally discussed and reviewed the patient's visit/currently labs/imaging/decision making with Dr. Washington, my supervising attending. Greater that 50 minutes spent with patient, 50% of the time spent with this patient was devoted to counseling and coordination of care.
[2024-05-14] MEDS: ZOFRAN ODT PO PRN (12:33)
[2024-05-14] MEDS: COREG PO SCH (18:12)
[2024-05-14] MEDS: ROCEPHIN 1 GM/50 ML D5W 1 GM/50 ML BAG IV SCH (20:16)
[2024-05-15 05:21] LABS: BASOPHILS % (AUTO) 0.4 % (0.0-3.0); EOSINOPHILS # (AUTO) 0.2 K/ul (0.0-0.7); EOSINOPHILS % (AUTO) 2.1 % (0.0-7.0); HEMATOCRIT 32.9 % (37.0-47.0); HEMOGLOBIN 11.1 g/dl (12.0-16.0); IMMATURE GRANULOCYTE % (AUTO) 0.5 % (0.0-5.0); LYMPHOCYTES # (AUTO) 1.8 K/uL (0.60-3.4); LYMPHOCYTES % (AUTO) 21.6 (10.0-50.0); MEAN CORPUSCULAR HGB CONC 33.7 (31.8-35.4); MEAN CORPUSCULAR VOLUME 94.8 fl (81.0-99.0); MONOCYTES # (AUTO) 0.8 K/uL (0.4-2.0); MONOCYTES % (AUTO) 9.2 (0-10); NEUTROPHILS # (AUTO) 5.6 K/ul (2.0-6.9); NEUTROPHILS % (AUTO) 66.2 % (42.2-75.2); PLATELET COUNT 207 10^3/uL (140-440); RDW COEFFICIENT OF VARIATION 12.7 % (11.6-14.8); RED BLOOD COUNT 3.47 10^6/ul (4.20-5.40); WHITE BLOOD COUNT 8.47 K/ul (4.6-10.2)
[2024-05-15 05:32] LABS: ALBUMIN 3.23 g/dL (3.5-5.0); ALKALINE PHOSPHATASE 67.9 U/L (53-141); ASPARTATE AMINO TRANSFERASE 26.8 U/L (14-36); BILIRUBIN,TOTAL 0.35 mg/dL (0.2-1.3); BLOOD UREA NITROGEN 26.8 mg/dL (7-17); CALCIUM 9.48 mg/dL (8.4-10.2); CARBON DIOXIDE 26.5 mmol/L (22-30.0); CHLORIDE 95.6 mmol/L (98-107); CREATININE 1.33 mg/dL (0.60-1.30); GLUCOSE 90.5 mg/dL (74-106); POTASSIUM 4.03 mmol/L (3.5-5.1); SODIUM 127.1 mmol/L (134.5-145); TOTAL PROTEIN 5.72 g/dL (6.3-8.2)
[2024-05-15 06:14] LABS: SERUM OSMOLALITY 270 mOsmol/kg (280-301)
--- NOTE | 2024-05-15 09:37 | PCM.PROG ---
Date/Time Seen Date Seen by Provider: 05/15/24 Time Seen by Provider: 09:00 Provider Provider[facility] Chief Complaint Chief Complaint: CHF; HYPONATREMIA Subjective Subjective: Intermittently confused. Oriented this am. No complaints. Up in chair with assistance this am. Objective Appearance: Positive No Apparent Distress and Alert and Oriented x3 Chest/Lungs: Positive Symmetrical With Equal Breath Sounds and Clear to Auscultation Bilaterally Heart: Positive RRR and Pulses Normal GI/: Positive Soft, Nontender, Bowel Sounds Normal and No Distention Musculoskeletal: Positive Not Examined Neurological: Positive Sensation Intact, Motor intact, Alert and Oriented Additional Findings: +1-2 pitting edema BLE Vital Signs Vital Signs: Vital Signs: Last 24 Hours 05/14/24 09:41 05/14/24 09:46 05/14/24 11:00 Temperature 97.4 F L Temperature Source Temporal Artery Scan Pulse Rate 86 Respiratory Rate 15 Blood Pressure 123/65 Blood Pressure Mean 84 Blood Pressure Location Left Arm Blood Pressure Position Supine O2 Sat by Pulse Oximetry 100 Oxygen Delivery Method Room Air Room Air Room Air Weight Telemetry Type Telemetry Monitoring Irregular Telemetry Rate (Approximate) EKG QRS Interval Telemetry Strip [place] 05/14/24 12:00 05/14/24 13:00 05/14/24 13:00 Temperature Temperature Source Pulse Rate Respiratory Rate Blood Pressure Blood Pressure Mean Blood Pressure Location Blood Pressure Position O2 Sat by Pulse Oximetry Oxygen Delivery Method Room Air Room Air Weight Telemetry Type Remote Telemetry Telemetry Monitoring Continues Irregular Telemetry Rate (Approximate) 80-90 BPM EKG QRS Interval 0.06 Telemetry Strip Reading AFIB 05/14/24 14:00 05/14/24 14:00 05/14/24 15:00 Temperature 97.1 F L Temperature Source Temporal Artery Scan Pulse Rate 104 H Respiratory Rate 18 Blood Pressure 116/67 Blood Pressure Mean 83 Blood Pressure Location Left Arm Blood Pressure Position Supine O2 Sat by Pulse Oximetry 99 Oxygen Delivery Method Room Air Room Air Room Air Weight Telemetry Type Telemetry Monitoring Irregular Telemetry Rate (Approximate) EKG QRS Interval Telemetry Strip [place] 05/14/24 16:00 05/14/24 17:00 05/14/24 17:21 Temperature Temperature Source Pulse Rate Respiratory Rate Blood Pressure Blood Pressure Mean Blood Pressure Location Blood Pressure Position O2 Sat by Pulse Oximetry Oxygen Delivery Method Room Air Room Air Room Air Weight Telemetry Type Telemetry Monitoring Irregular Telemetry Rate (Approximate) EKG QRS Interval Telemetry Strip [place] 05/14/24 17:52 05/14/24 19:00 05/14/24 19:00 Temperature 97.8 F Temperature Source Temporal Artery Scan Pulse Rate 91 Respiratory Rate 16 Blood Pressure 114/67 Blood Pressure Mean 82 Blood Pressure Location Left Arm Blood Pressure Position Sitting O2 Sat by Pulse Oximetry 98 Oxygen Delivery Method Room Air Room Air Weight Telemetry Type Remote Telemetry Telemetry Monitoring Continues Irregular Telemetry Rate (Approximate) 90-100 BPM EKG QRS Interval 0.06 Telemetry Strip Reading AFIB 05/14/24 20:00 05/14/24 20:00 05/14/24 21:00 Temperature Temperature Source Pulse Rate Respiratory Rate Blood Pressure Blood Pressure Mean Blood Pressure Location Blood Pressure Position O2 Sat by Pulse Oximetry Oxygen Delivery Method Room Air Room Air Room Air Weight Telemetry Type Telemetry Monitoring Irregular Telemetry Rate (Approximate) EKG QRS Interval Telemetry Strip [place] 05/14/24 21:23 05/14/24 21:39 05/14/24 23:00 Temperature 98.6 F Temperature Source Temporal Artery Scan Pulse Rate 86 Respiratory Rate 18 Blood Pressure 115/68 Blood Pressure Mean 83 Blood Pressure Location Left Arm Blood Pressure Position Supine O2 Sat by Pulse Oximetry 100 Oxygen Delivery Method Room Air Room Air Room Air Weight Telemetry Type Telemetry Monitoring Irregular Telemetry Rate (Approximate) EKG QRS Interval Telemetry Strip [place] 05/15/24 00:00 05/15/24 00:57 05/15/24 00:58 Temperature Temperature Source Pulse Rate Respiratory Rate Blood Pressure Blood Pressure Mean Blood Pressure Location Blood Pressure Position O2 Sat by Pulse Oximetry Oxygen Delivery Method Room Air Room Air Weight Telemetry Type Remote Telemetry Telemetry Monitoring Continues Irregular Telemetry Rate (Approximate) 70-80 BPM EKG QRS Interval 0.06 Telemetry Strip Reading AFIB 05/15/24 02:00 05/15/24 03:00 05/15/24 03:21 Temperature 97.6 F Temperature Source Temporal Artery Scan Pulse Rate 89 Respiratory Rate 18 Blood Pressure 98/61 Blood Pressure Mean 73 Blood Pressure Location Left Arm Blood Pressure Position Supine O2 Sat by Pulse Oximetry 100 Oxygen Delivery Method Room Air Room Air Room Air Weight Telemetry Type Telemetry Monitoring Irregular Telemetry Rate (Approximate) EKG QRS Interval Telemetry Strip [place] 05/15/24 04:00 05/15/24 05:00 05/15/24 05:22 Temperature 97.9 F Temperature Source Temporal Artery Scan Pulse Rate 78 Respiratory Rate 18 Blood Pressure 92/52 L Blood Pressure Mean 65 Blood Pressure Location Left Arm Blood Pressure Position Supine O2 Sat by Pulse Oximetry 99 Oxygen Delivery Method Room Air Room Air Room Air Weight Telemetry Type Telemetry Monitoring Irregular Telemetry Rate (Approximate) EKG QRS Interval Telemetry Strip [place] 05/15/24 05:22 05/15/24 05:56 05/15/24 07:00 Temperature Temperature Source Pulse Rate Respiratory Rate Blood Pressure Blood Pressure Mean Blood Pressure Location Blood Pressure Position O2 Sat by Pulse Oximetry Oxygen Delivery Method Room Air Weight 154 lb 8 oz Telemetry Type Remote Telemetry Telemetry Monitoring Continues Irregular Telemetry Rate (Approximate) 60-70 BPM EKG QRS Interval 0.08 Telemetry Strip Reading Afib 05/15/24 07:00 05/15/24 08:00 05/15/24 09:00 Temperature Temperature Source Pulse Rate Respiratory Rate Blood Pressure Blood Pressure Mean Blood Pressure Location Blood Pressure Position O2 Sat by Pulse Oximetry Oxygen Delivery Method Room Air Room Air Room Air Weight Telemetry Type Telemetry Monitoring Irregular Telemetry Rate (Approximate) EKG QRS Interval Telemetry Strip Reading Lab Results Lab Results: Lab Results: Last 24 Hours 05/15/24 05/13/24 05:09 15:44 WBC 8.47 RBC 3.47 L Hgb 11.1 L Hct 32.9 L MCV 94.8 MCH 32.0 H MCHC 33.7 RDW Coeff of Penny 12.7 Plt Count 207 Immature Gran % (Auto) 0.5 Neut % (Auto) 66.2 Lymph % (Auto) 21.6 [place] % (Auto) 9.2 Eos % (Auto) 2.1 Baso % (Auto) 0.4 Neut # (Auto) 5.6 Lymph # (Auto) 1.8 [place] # (Auto) 0.8 Eos # (Auto) 0.2 Baso # (Auto) 0.0 Immature Gran # (Auto) 0.0 Sodium 127.1 L Potassium 4.03 Chloride 95.6 L Carbon Dioxide 26.5 Anion Gap 9.03 BUN 26.8 H Creatinine 1.33 H Estimated GFR (MDRD) 38.00 BUN/Creatinine Ratio 20.15 Glucose 90.5 Serum Osmolality 270 L Calcium 9.48 Total Bilirubin 0.35 AST 26.8 ALT 11.0 Alkaline Phosphatase 67.9 Total Protein 5.72 L Albumin 3.23 L Globulin 2.49 Albumin/Globulin Ratio 1.29 Additional Comments Additional Comments: I have independently reviewed and interpreted the labs/EKGs/imaging ordered d uring this hospital stay. I have reviewed outside records that are available in our EMR that pertain to medical stay including imaging/notes/labs from previous visits. Active Medications Active Medications: Medications Generic Name Dose Route Start Last Admin Trade Name Freq PRN Reason Stop Dose Admin Acetaminophen 650 mg 05/13/24 15:38 Acetaminophen 325 Mg Tablet PO Q4H PRN Mild Pain Hydrocodone Bitart/Acetaminophen 1 tab 05/13/24 17:56 05/14/24 20:15 Hydrocodone Bit/Acetaminophen 7.5/325 Mg Tablet PO 1 tab Q4HR PRN Administration Pain Albuterol Sulfate 1 puff 05/13/24 17:56 Albuterol Sulfate 8 Gm Inhaler IH Q4H PRN Wheezing Apixaban 5 mg 05/13/24 21:00 05/15/24 08:12 Apixaban 5 Mg Tab PO 5 mg BID HEAVENLY Administration Carvedilol 6.25 mg 05/14/24 17:00 05/15/24 08:12 Carvedilol 6.25 Mg Tablet PO 6.25 mg BIDWM2 HEAVENLY Administration Docusate Sodium 100 mg 05/13/24 21:00 05/14/24 20:15 Docusate Sodium 100 Mg Capsule PO 100 mg BEDTIME HEAVENLY Administration Ferrous Sulfate 324 mg 05/14/24 09:00 05/15/24 08:13 Ferrous Sulfate 324 Mg Tablet. PO 324 mg DAILY HEAVENLY Administration CEFTRIAXONE/D5W 1 GM PREMIX 1 gm in 50 mls @ 100 mls/hr 05/14/24 21:00 05/14/24 20:16 Rocephin 1 Gm/50 Ml D5w IV 05/16/24 21:59 100 mls/hr BEDTIME HEAVENLY Administration Lisinopril 5 mg 05/14/24 09:00 05/15/24 08:13 Lisinopril 5 Mg Tablet PO Not Given DAILY HEAVENLY Ondansetron HCl 4 mg 05/14/24 12:12 05/14/24 12:33 Ondansetron Hcl 4 Mg Tab.Rapdis PO 4 mg Q8H PRN Administration Nausea / Vomiting Sodium Chloride 1 gm 05/13/24 17:00 05/15/24 08:12 Sodium Chloride 1 Gm Tablet PO 1 gm QID HEAVENLY Administration Ursodiol 300 mg 05/13/24 21:00 05/14/24 20:15 Ursodiol 300 Mg Capsule PO 300 mg BEDTIME HEAVENLY Administration Ursodiol 600 mg 05/14/24 09:00 05/15/24 08:13 Ursodiol 300 Mg Capsule PO 600 mg DAILY HEAVENLY Administration Plan Plan: 1. Acute on Chronic Systolic HF - Improving, diuresing well, stopping lasix due to hypotension, I&O, daily weight, 1800 fluid restriction, echo today - last one 08/2022 at [facility] EF 56-60% 2. Acute on Chronic Hyponatremia - Worsening, 127 this am, osmolalities pending, fluid restriction, salt tabs QID 3. UTI - urine culture growth of E. Coli, continue rocephin Q24H 4. Chest pain - Resolved, likely due to afib rvr, telemetry, serial troponins negative 5. Afib - no longer in RVR, telemetry, continue home medications, monitor 6. Acute Metabolic Encephalopathy - confused at times per nursing staff and family, secondary to #2&3, avoid neurologically altering agents, monitor 7. Hypertension - chronic, continue home medications DVT Prophylaxis: Eliquis Admit to inpatient due to worsening above conditions. Review Statement Review Statement: I have personally discussed and reviewed the patient's visit/currently l abs/imaging/decision making with Dr. Washington, my supervising attending. Greater that 50 minutes spent with patient, 50% of the time spent with this patient was devoted to counseling and coordination of care.
[2024-05-15 12:12] LABS: OSMOLALITY,URINE 308 mOsmol/kg (.)
--- NOTE | 2024-05-15 16:24 | RS.PTINEVL ---
Subjective Patient information Date of Evaluation: 05/15/24 Date of Arrival on Unit: 05/13/24 Admitted From:: Home Diagnosis: CHF exacerbation, Afib, hyponatremia, chest pain Usual Living Arrangement: With Others Living Arrangement Comments: pt's daughter and granddaughter live with her. Home Environment: House and Ramp Medical History: Hypertension, Arthritis and Cancer (breast CA ) Medical History Comments:: CKD, GERD, cirrhosis, asthma, fibromyalgia, metabolic encephalopathy, h/o falls LATEX ALLERGY?: No Medications: see chart Subjective Information/ Patient Comments:: pt states that she walks on her own at home with her rollator. Daughter states that they walk beside her but she is able to do it on her own. Daughter states she is glad she will be getting PT because she does not want her to lose more strength. Level of function Prior to this admission, the patient could do the following:: Independent Ambulation Abilities prior to this admission: family assists with ADL's Current Level of Function: Partially Dependent Current Equipment Used at Home: BSC, rollator, shower chair Interventions Objective Patient Orientation: Person and Place Current Interventions: IV's and Telemetry Observation: pt with min edema non pitting BLE pt with increased thoracic kyphosis Range of Motion ROM Right Upper Extremity AROM: WFL's Left Upper Extremity AROM: WFL's Right Lower Extremity AROM: WFL's Left Lower Extremity AROM: WFL's Muscle Strength Muscle Strength Right Upper Extremity: Mild Weakness (grossly 4/5) Left Upper Extremity: Mild Weakness (grossly 4/5) Right Lower Extremity: Mild Weakness (hip flex 4-/5, knee flex/ext 4/5, ankle DF/PF 4/5 ) Left Lower Extremity: Mild Weakness (hip flex 4-/5, knee flex/ext 4/5, ankle DF/PF 4/5 ) Sensation Sensation Right Upper Extremity: Intact/Normal Left Upper Extremity: Intact/Normal Right Lower Extremity: Intact/Normal Left Lower Extremity: Intact/Normal Palpation Palpation Findings: None/Normal Balance Sitting Balance and Reactions Static Sitting Balance: Good (good-) Dynamic Sitting Balance: Fair Standing Balance and Reactions Static Standing Balance: Poor Dynamic Standing Balance: Poor Functional Mobility Bed Mobility Rolling R/L: Min Assist Scooting: Mod Assist, Max Assist and 2 person assist Supine to Sit: Min Assist, Mod Assist and 1 person assist Sit to Supine: Min Assist and 1 person assist Transfers Sit to Stand: Min Assist and 1 person assist Stand to Sit: CGA and 1 person assist Comments:: sit to/from stand from toilet min x 2 due to low commode Safety Awareness Safety Awareness: Fair SHERRY INDEX SCORE: n/a Ambulation Ambulation Assistive Device Used: Rolling Walker Orthotic/Prosthetic Device: No Distance: 12ft x 2 Assistance needed with Ambulation: CGA, 1 person assist and 2 person assist Gait Deviations: Wide Based gait, Step-to gait, Forward posture and Short stride Factors Affecting Ambulation: Decreased Balance, Weakness, Decreased Coordination, Decreased Safety, Cognitive Status and Limited Endurance Treatment time Units charged Gait trainin Time with patient Length of Evaluation: 18 Total treatment time: 29 Patient Education Education Patient Education: Activity Modification and Education of Plan of Care Teaching Recipient: Patient Teaching Methods: Discussion Comments: discussion regarding POC Assessment Assessment Problem List:: Decreased level of function, Requires training/education, Decreased safety/Risk of falls, Weakness and Cognitive status limits abilities Rehab Potential: Good Further Therapy Indicated?: Yes Evaluation Complexity: HISTORY: Medium, EXAM OF BODY SYSTEMS: Medium, CLINICAL PRESENTATION: Medium and CLINICAL DECISION MAKING: Medium Patient's Goal(s): return home with family Short Term Goals GOAL #1: pt demonstrate rolling and scooting in bed independently. Goal to be met by: 05/18/24 GOAL #2: Transfer sup to/from sit CGA x 1 Goal to be met by: 05/18/24 GOAL #3: Transfer sit to/from stand CGA x 1 Goal to be met by: 05/18/24 GOAL #4: pt amb 25ft with rwx with CGA with no LOB. Goal to be met by: 05/18/24 GOAL #5: Improve BLE strength 4 to 4+/5 Goal to be met by: 05/18/24 GOAL #6: . Face Man Goals GOAL #1: Transfer sup to/from sit to/from stand SBA Goal to be met by: 05/20/24 GOAL #2: pt amb functional household distances with rwx CGA to SBA Goal to be met by: 05/20/24 GOAL #3: pt demonstrate improved dyn stand balance fair. Goal to be met by: 05/20/24 Plan Plan of Care: Therapeutic EX, Neuromuscular Re-Educ and Therapeutic Activity Other:: gait training Frequency of Treatment: 1-2 X day, as tolerated Duration of Treatment: 5 days Anticipated Discharge Destination: Home Treatment Diagnosis (ICD 10 Codes): impaired balance R 26.81 gait difficulty R 26.2 weakness M62.81 Has the Physician been added for Co-signature?: Yes
[2024-05-15] MEDS: BENADRYL PO PRN (20:40)
[2024-05-16 05:20] LABS: BASOPHILS % (AUTO) 0.4 % (0.0-3.0); EOSINOPHILS # (AUTO) 0.2 K/ul (0.0-0.7); EOSINOPHILS % (AUTO) 2.2 % (0.0-7.0); HEMATOCRIT 34.2 % (37.0-47.0); HEMOGLOBIN 11.4 g/dl (12.0-16.0); IMMATURE GRANULOCYTE % (AUTO) 0.4 % (0.0-5.0); LYMPHOCYTES # (AUTO) 1.8 K/uL (0.60-3.4); LYMPHOCYTES % (AUTO) 25.1 (10.0-50.0); MEAN CORPUSCULAR HEMOGLOBIN 32.2 pg (27.0-31.0); MEAN CORPUSCULAR HGB CONC 33.3 (31.8-35.4); MEAN CORPUSCULAR VOLUME 96.6 fl (81.0-99.0); MONOCYTES # (AUTO) 0.8 K/uL (0.4-2.0); MONOCYTES % (AUTO) 10.6 (0-10); NEUTROPHILS # (AUTO) 4.4 K/ul (2.0-6.9); NEUTROPHILS % (AUTO) 61.3 % (42.2-75.2); PLATELET COUNT 207 10^3/uL (140-440); RDW COEFFICIENT OF VARIATION 12.8 % (11.6-14.8); RED BLOOD COUNT 3.54 10^6/ul (4.20-5.40); WHITE BLOOD COUNT 7.25 K/ul (4.6-10.2)
[2024-05-16 05:32] LABS: ALANINE AMINOTRANSFERASE 10.9 U/L (0-35); ALBUMIN 3.27 g/dL (3.5-5.0); ALKALINE PHOSPHATASE 75.1 U/L (53-141); ASPARTATE AMINO TRANSFERASE 23.3 U/L (14-36); BILIRUBIN,TOTAL 0.31 mg/dL (0.2-1.3); BLOOD UREA NITROGEN 32.9 mg/dL (7-17); CALCIUM 9.56 mg/dL (8.4-10.2); CHLORIDE 98.8 mmol/L (98-107); CREATININE 1.49 mg/dL (0.60-1.30); GLUCOSE 86.8 mg/dL (74-106); POTASSIUM 4.01 mmol/L (3.5-5.1); SODIUM 129.9 mmol/L (134.5-145); TOTAL PROTEIN 5.74 g/dL (6.3-8.2)
--- NOTE | 2024-05-16 07:53 | ECHO2D ---
Date of Exam: 05/15/2024 Ordering Physician: HOSPITALIST--AGAPITO Whitt NP/ DR. SURESH Room #: 116 Reason for Echo: SOB, CHEST PAIN, CHF, A-FIB M-Mode Normal Adult Results LV Dimensions Normal Adult Results AoV Opening excursions >1.6 >1.6 LVEDD-base- 3.5-5.8 5.2 Ao root dimensions 2.0-3.7 2.8 LVESD-base- 3.1-4.6 L. Atrium dimensions 1.9-3.8 4.7 Post. Wall thickness 0.8-1.1 1.1 IV septum (thickness) 0.7-1.2 1.3 Post. Wall excursion 0.72-1.3 NORMAL Septal motion 0.5 Systolic motion R. Ventricular cavity 1.5-2.0 3.5 LVEF 60% 50-55% Paradoxical septal wall motion NORMAL 2-D : MILDLY HYPOKINETIC SEPTAL WALL--CALCIFIC MITRAL VALVE ANNULUS, NO EFFUSION, NO THROMBUS, AORTIC VALVE, TRICUSPID VALVE, MITRAL VALVE--NORMAL, ENLARGED RIGHT VENTRICLE, LEFT ATRIAL AND RIGHT CAVITY M-MODE: MV: CALCIFIC MITRAL VALVE ANNULUS AV: NORMAL TV: NORMAL PV: CHAMBER SIZE: ENLARGED LEFT ATRIAL, RIGHT ATRIAL AND RIGHT VENTRICLE CAVITIES WALL MOTION: MILDLY HYPOKINETIC SEPTAL WALL PERICARDIUM: NORMAL INTERPRETATION: 1. LEFT VENTRICLE HYPERTROPHY WITH ENLARGED LEFT ATRIAL CAVITY 2. ENLARGED RIGHT ATRIAL AND RIGHT VENTRICLE CAVITIES 3. CALCIFIC MITRAL VALVE ANNULUS 4. TRICUSPID VALVE, AORTIC VALVE AND PULMONARY VALVE--NORMAL 5. MILDLY HYPOKINETIC SEPTAL WALL--EJECTION FRACTION 50% TO 55% MTDD
[2024-05-16] MEDS: ALDACTONE PO SCH (08:21)
--- NOTE | 2024-05-16 09:09 | RS.OTINEVL ---
Subjective Patient information Date of Evaluation: 05/16/24 Date of Arrival on Unit: 05/13/24 Admitted From:: Home Diagnosis: Decline in Functional mobility. Post L hip nailing PRECAUTIONS: Pt is a fall risk. Usual Living Arrangement: With Others Living Arrangement Comments: pt's daughter and granddaughter live with her. Daughter is often gone from home. Home Environment: House and Ramp Medical History: Hypertension, Arthritis and Cancer (breast CA ) Medical History Comments:: CKD, GERD, cirrhosis, asthma, fibromyalgia, metabolic encephalopathy, h/o falls LATEX ALLERGY?: No Surgical History: Cholecystectomy Surgical History Comments:: underwent IM nailing L femur 09/05/21 Medications: see chart Subjective Information/ Patient Comments:: "I walked yesterday, I don't understand why I can't get my foot to move." "I can't get balanced." Level of function Prior to this admission, the patient could do the following:: Independent Ambul ation Abilities prior to this admission: Pt reported she was able to walk with her walker at home and was able to put her shoes on. Pt is not able to do either today. Current Level of Function: Partially Dependent Current Equipment Used at Home: BSC, rollator, shower chair Pain Assessment Pain Pain Score: 0 Interventions Objective Patient Orientation: Person, Place and Situation Current Interventions: IV's and Telemetry Observation: Pt Independent with supine to sit EOB. Pt Mod A to stand from recli ner. Pt not able to control the R foot. Slapping R foot on floor. Pt became very anxious. Pt did not reach back to sit down in the recliner. Pt has approx. 90 deg. of BUE shoulder flexion. Interventions ROM Right Upper Extremity AROM: Moderate limitation Left Upper Extremity AROM: Moderate limitation Strength Right Upper Extremity: Moderate Weakness Left Upper Extremity: Moderate Weakness Sensation Right Upper Extremity: Intact/Normal Left Upper Extremity: Intact/Normal Coordination Tests Right: Finger Opposition: Normal/Intact Comments: Pt BUE intact. ADL Skills Self Feeding Self Feeding: Min Assist Grooming Grooming: Min Assist Grooming Set-up: Sitting Comments:: Pt has decreased hand motion due to arthritis. Pt cannot make a full fist with either hand. Bathing Bathing UE: Set Up Only Bathing LE: Min Assist Bathing Set-up: Shower Dressing Dressing UE: Min Assist Dressing LE: Max Assist Toilet Management Toilet Hygiene: Not Tested Toilet Clothing Management: Not Tested Comments Comments:: Pt not able to ambulate today due to RLE and anxiousness. Functional Mobility Bed Mobility Rolling R/L: Independent Scooting: Independent Supine to Sit: Independent Sit to Supine: Not Tested Comments:: Pt having difficulty moving the RLE, and coordination of the RLE. Transfers Sit to Stand: Min Assist Stand to Sit: Mod Assist Stand Pivot Transfers: Mod Assist Ambulation Weight Bearing Status: FWB Assistive Device Used: Rolling Walker Assistance needed with Ambulation: Mod Assist, 1 person assist, Verbal Cues and Tactile Cues Comments:: Pt became scared and anxious reporting she could not find her balance. Safety Awareness Safety Awareness: Good SHERRY INDEX SCORE: . Additional Treatment Performed Additional units charged ADL: 15 Time with patient Length of Evaluation: 17 Total treatment time: 34 Activities Do you enjoy playing games?: No Would you be interested in leaving your room for activities?: Yes Would you enjoy group activities?: No Do you have difficulty with your vision?: Yes Patient Interests:: Watching Television and Visiting/Socializing Patient Education Patient Education: Home Exercise Program and Education of Plan of Care Teaching Recipient: Patient Teaching Methods: Discussion and Demonstration Assessment Problem List:: Decreased level of function, Requires training/education, Decreased safety/Risk of falls and Weakness Rehab Potential: Good Further Therapy Indicated?: Yes Evaluation Complexity: HISTORY: Medium, EXAM OF BODY SYSTEMS: Medium and CLINICAL DECISION MAKING: Medium Patient's Goal(s): To be able to walk to the bathroom and go home. Short Term Goals Goals GOAL 1: Pt to be min A with ADLS. Goal to be met by: 05/20/24 GOAL 2: Pt to be min A with AE for LE dressing. Goal to be met by: 05/20/24 GOAL 3: Pt to have full AROM of LUE. Goal to be met by: 05/20/24 GOAL 4: Pt to increase activity tolerance to 6 minutes in standing. Goal to be met by: 05/20/24 Associate Web Developer Goals GOAL 1: Pt to be CGA for ADLS. Goal to be met by: 05/23/24 GOAL 2: Pt to be independent with AE for dressing. Goal to be met by: 05/23/24 GOAL 3: Pt to increase activity tolerance to 10 minutes. Goal to be met by: 05/23/24 Plan Plan of Care: Therapeutic EX, Neuromuscular Re-Educ, Therapeutic Activity and Self-Care/Home Management Frequency of Treatment: 1-2 X day, as tolerated Duration of Treatment: 1 Week Anticipated Discharge Destination: Home Treatment Diagnosis (ICD 10 Codes): Z74.1 Need for assistance with personal care, R27.8 Other lack of coordination. Has the Physician been added for Co-signature?: Yes
--- NOTE | 2024-05-16 09:33 | DCSUM ---
Admission Date Admission Date: 05/13/24 Discharge Date Discharge Date: 05/16/24 Admission Diagnosis Admission Diagnosis: 1. CHF Exacerbation 2. Acute on Chronic Hyponatremia 3. UTI 4. Chest pain 5. Afib 6. Hypertension Discharge Diagnosis Discharge Diagnosis: 1. Acute on Chronic Systolic HF - Resolved 2. Acute on Chronic Hyponatremia - Improving, at baseline 3. UTI - Improving 4. Chest pain - Resolved 5. Afib - Chronic, stable 6. Acute Metabolic Encephalopathy - Resolved 7. Hypertension - Chronic, stable 8. Weakness d/t recent UTI and hyponatremia - ongoing Hospital Provider Hospital Provider: ANTONIO ROSARIO, [facility] Primary Care Physician Primary Care Physician: JOSEPH SURESH Summary of History and Physical Summary of History and Physical: 84 yo female with pmh of chf, afib, htn, chronic hyponatremia, and ckd presented to the ER with complaints of chest pain. States that it started when she was sitting on the toilet urinating around 10 am. Describes the pain as a tightness without radiation. States she has not felt well and been weak over the last 2 days. Also reports she saw her doctor and had labs completed that revealed a sodium of 123. Had been increasing salt in her diet and decreased fluid intake since then. States she has to drink excessively due to an esophageal issue and her GI doctor told her to drink with bites of food. States that chest pain is resolved at this time. Denies fever, chills, shortness of breath, N/V/D. While in ER, she was found to be in afib with rvr. She was given 1 dose if IV cardizem and heart rate was controlled in 80s-90s. Sodium was 125. Troponin negative. BNP >2000. Admitted to med/surg observation for chf exacerbation and hyponatremia. Hospital Course Subjective: During stay patient was diuresed for treatment of CHF exacerbation. Lasix was given BID. Blood pressure was soft yesterday and lasix was stopped. Transitioned to home aldactone today. Patient was started on salt tabs for hyponatremia. Osmolalities obtained and normal. Unable to give fluids to correct sodium due to CHF. At baseline level of 129 today. She was found to have UTI. Urine culture had growth of E. Coli. Has been receiving rocephin 1G Q24H - sensitive for E Coli. Chest pain resolved after admission. Serial troponins collected and negative. A fib has been controlled with home medications. Patient had episodes of confusion at times but has remained oriented daily. Due to above, patient has become more weak than her baseline. PT/OT completed evaluations during stay and reports patient would benefit from further therapy services. Appearance: Pleasant, No Apparent Distress and Alert HEENT: MMM, Supple and No JVD CVS: No Murmur and No Rubs Abdomen: Soft and Non-Tender Respiratory: No Dyspnea Extremities: No Edema Vital Signs: Most Recent Vital Signs Temperature 96.1 F L 05/16/24 05:17 Temperature Source Temporal Artery Scan 05/16/24 05:17 Temperature Source Infrared 05/13/24 13:25 Pulse Rate 82 05/16/24 07:50 Respiratory Rate 16 05/16/24 05:17 Blood Pressure 114/46 L 05/16/24 07:50 Blood Pressure Mean 68 05/16/24 07:50 Blood Pressure Left Arm 135/90 05/13/24 16:24 Blood Pressure Location Left Arm 05/16/24 07:50 Blood Pressure Position Sitting 05/16/24 07:50 O2 Sat by Pulse Oximetry 98 05/16/24 07:50 Oxygen Delivery Method Room Air 05/16/24 07:50 Height 5 ft 5 in 05/13/24 16:24 Weight 152 lb 8 oz 05/16/24 05:20 Telemetry Type Remote Telemetry 05/16/24 07:00 Telemetry Monitoring Continues 05/16/24 07:00 Irregular Telemetry Rate (Approximate) 80-90 BPM 05/16/24 07:00 Telemetry Heart Rate 107 H 05/15/24 19:00 EKG QRS Interval 0.08 05/16/24 07:00 Telemetry Strip Reading Afib 05/16/24 07:00 Imaging: EXAM: CHEST RADIOGRAPH FINDINGS: The heart and mediastinum are stable. The lungs and pleural spaces appear within normal limits. No acute abnormality of the bones or soft tissues is identified. IMPRESSION: No evidence of acute disease. Echo 2D INTERPRETATION: 1. LEFT VENTRICLE HYPERTROPHY WITH ENLARGED LEFT ATRIAL CAVITY 2. ENLARGED RIGHT ATRIAL AND RIGHT VENTRICLE CAVITIES 3. CALCIFIC MITRAL VALVE ANNULUS 4. TRICUSPID VALVE, AORTIC VALVE AND PULMONARY VALVE--NORMAL 5. MILDLY HYPOKINETIC SEPTAL WALL--EJECTION FRACTION 50% TO 55% Lab Results Last 24 Hours: 05/16/24 05/13/24 05:10 15:44 WBC 7.25 RBC 3.54 L Hgb 11.4 L Hct 34.2 L MCV 96.6 MCH 32.2 H MCHC 33.3 RDW Coeff of Penny 12.8 Plt Count 207 Immature Gran % (Auto) 0.4 Neut % (Auto) 61.3 Lymph % (Auto) 25.1 Weston % (Auto) 10.6 H Eos % (Auto) 2.2 Baso % (Auto) 0.4 Neut # (Auto) 4.4 Lymph # (Auto) 1.8 Weston # (Auto) 0.8 Eos # (Auto) 0.2 Baso # (Auto) 0.0 Immature Gran # (Auto) 0.0 Sodium 129.9 L Potassium 4.01 Chloride 98.8 Carbon Dioxide 26.0 Anion Gap 9.11 BUN 32.9 H Creatinine 1.49 H Estimated GFR (MDRD) 33.00 BUN/Creatinine Ratio 22.08 Glucose 86.8 Calcium 9.56 Total Bilirubin 0.31 AST 23.3 ALT 10.9 Alkaline Phosphatase 75.1 Total Protein 5.74 L Albumin 3.27 L Globulin 2.47 Albumin/Globulin Ratio 1.32 Urine Osmolality 308 Discharge Instructions Discharge Planning: Discharge Planning > 40 minutes If patient is discharged with left ventricular systolic dysfunction: NA Discharged with a beta zabrina? [] If no, why not? [] Discharged with an gerson/arb? [] If no, why not? [] Diagnosis: Acute CHF exacerbation, UTI, Hyponatremia Diet: 2L fluid restriction, Regular diet Activity as tolerated, PT/OT Follow-up with PCP next week Medications: Cephalexin 500 mg twice a day x 4 days Sodium Chloride 1G 4 times a day Discharge Medications: Medications at Discharge (Home Meds & RX) ursodiol 300 mg capsule 600 mg PO DAILY 07/26/15 apixaban 5 mg tablet (Eliquis) 5 mg PO BID 05/24/17 carvedilol 6.25 mg tablet (Coreg) 6.25 mg PO BID 05/24/17 albuterol 90 mcg/actuation aerosol inhaler 90 mcg inhalation Q4H PRN shortness of air 09/09/21 bisacodyl 10 mg rectal suppository 10 mg CO DAILY PRN constipation 09/09/21 ferrous sulfate 325 mg (65 mg iron) tablet (FeroSul) 325 mg PO DAILY 09/09/21 polyethylene glycol 3350 17 gram oral powder packet (Miralax) 17 g PO DAILY PRN constipation 09/09/21 sennosides 8.6 mg-docusate sodium 50 mg tablet 1 tab-cap PO BID 09/09/21 ondansetron HCl 4 mg tablet (Zofran) 4 mg PO Q6H PRN Nausea And Vomiting 09/10/21 docusate sodium 100 mg capsule (Colace) 100 mg PO BEDTIME 05/13/24 hydrocodone 7.5 mg-acetaminophen 325 mg tablet 1 tab PO Q4HR PRN pain 05/13/24 lisinopril 5 mg tablet 5 mg PO DAILY 05/13/24 spironolactone 25 mg tablet 12.5 mg PO DAILY 05/13/24 ursodiol 300 mg capsule 300 mg PO BEDTIME 05/13/24 diphenhydramine HCl 25 mg capsule 25 mg PO BEDTIME PRN itching 05/15/24 Discharge Plan Discharge Discharge Orders: Discharge Patient (ONCE); Ordered 05/16/24 Ordered By: AGAPITO DICKEY Activity Restrictions/Additional Instructions: Diagnosis: Acute CHF exacerbation, UTI, Hyponatremia Diet: 2L fluid restriction, Regular diet Activity as tolerated, PT/OT Follow-up with PCP next week Medications: Cephalexin 500 mg twice a day x 4 days Sodium Chloride 1G 4 times a day Instructions: Heart Failure (GEN), Urinary Tract Infection in Women (GEN), Hyponatremia (GEN), Fluid Restriction (GEN) Patient Disposition: HOME WITH FAMILY CARE Prescriptions: New sodium chloride 1,000 mg Tablet,Soluble 1,000 mg PO QID Qty: 120 0RF cephalexin 500 mg capsule 500 mg PO BID Qty: 8 0RF Continued ursodiol 300 MG capsule 600 mg PO DAILY Patient Comments: carvedilol [Coreg] 6.25 MG tablet 6.25 mg PO BID Eliquis 5 MG tablet 5 mg PO BID polyethylene glycol 3350 [Miralax] 17 gram Powder In Packet 17 g PO DAILY PRN (Reason: constipation) sennosides-docusate sodium 8.6-50 mg Tablet 1 tab-cap PO BID Hold Instructions: Accidental Entry bisacodyl 10 mg Suppository 10 mg CO DAILY PRN (Reason: constipation) ferrous sulfate [FeroSul] 325 mg (65 mg iron) Tablet 325 mg PO DAILY Rx Instructions: with breakfast albuterol 90 mcg/actuation Aerosol 90 mcg INHALATION Q4H PRN (Reason: shortness of air) Rx Instructions: 2 puffs ondansetron HCl [Zofran] 4 mg Tablet 4 mg PO Q6H PRN (Reason: Nausea And Vomiting) hydrocodone-acetaminophen 7.5-325 mg tablet 1 tab PO Q4HR PRN (Reason: pain) Patient Comments: TAKE 1 TABLET BY MOUTH EVERY 4 HOURS NEEDED FOR MODERATE PAIN OR PAIN spironolactone 25 mg tablet 12.5 mg PO DAILY Patient Comments: TAKE 1/2 TABLET BY MOUTH DAILY lisinopril 5 mg tablet 5 mg PO DAILY ursodiol 300 mg capsule 300 mg PO BEDTIME docusate sodium [Colace] 100 mg capsule 100 mg PO BEDTIME diphenhydramine HCl 25 mg capsule 25 mg PO BEDTIME PRN (Reason: itching) Patient Comments: TAKE 1 CAPSULE BY MOUTH EVERY NIGHT NEEDED FOR ITCHING Did you review [place] [employer] for ALL controlled substances?: No Discussed opioids are addictive and Narcan is available by prescription or from pharmacy.: No Condition: Stable
--- NOTE | 2024-05-16 09:50 | CT ---
EXAM: CT HEAD WITHOUT CONTRAST. HISTORY: Right leg weakness. COMPARISON: 04/11/2021. TECHNIQUE: Multiple axial images of the brain were obtained from the skull base through the vertex w ithout intravenous contrast. Multiplanar reformats were provided. FINDINGS: There is no intracranial hemorrhage or extraaxial collection. The beverly-white differentiat ion is maintained without evidence for acute large vascular territory infarction. There are areas of periventricular and subcortical white matter low attenuation, which are similar to the prior study. Some low density in the ciera is shown on sagittal imaging to be accentuated by artifact. The cortic al sulci and cerebral ventricles are symmetrically enlarged. The basal cisterns are well visualized. There is no hydrocephalus, mass effect, or midline shift. The paranasal sinuses and mastoid air ce lls are clear. The calvarium is intact. Atherosclerotic calcifications present. Since the prior , there has been no significant interval change. IMPRESSION: 1. No acute intracranial abnormality. 2. Chronic small vessel ischemic changes and atrophy. 3. Correlate with MRI if there is concern for acute cerebrovascular accident. All CT scans are performed using dose optimization techniques as appropriate to the performed exam an d include at least one of the following: Automated exposure control, adjustment of the mA and/or kV according t o size, and the use of iterative reconstruction technique.
[2024-05-16 14:09] VITALS: BP 110/73; PULSE 84; RESP 18; TEMP 97.3
--- NOTE | 2024-05-19 13:14 | OTEVAL ---
Physician: Timothy, Date of Service:05/15/24 SUBJECTIVE:["I don't know what is going on with my foot. I walked fine yesterday." ] OBJECTIVE:[Pt supine to sit, independently. BLE is pitting. Pt has weakness and impaired coordination of RLE. ] ASSESSMENT:[Pt has BSC, rollator, and shower chair at home. ] PLAN: [Pt discharged to home.] JADON
== END 2024-05-16 18:00 | disposition home or self-care (01) | DRG 640 ==
LOC: ED 13:24 → MEDSURG B 13:24
PROVIDERS: ADMIT Hospitalist; ATTEND Nurse Practitioner Family
DX: N18.9 Chronic kidney disease, unspecified; I50.23 Acute on chronic systolic (congestive) heart failure; N39.0 Urinary tract infection, site not specified; G93.41 Metabolic encephalopathy; I13.0 Hypertensive heart and chronic kidney disease with heart failure and stage 1 through stage 4 chronic kidney disease, or unspecified chronic kidney disease; I48.0 Paroxysmal atrial fibrillation; E87.1 Hypo-osmolality and hyponatremia